=== PATIENT | male | born 1970 | race Caucasian/White ===

== ENCOUNTER 2022-09-27 14:01 | Emergency (ER) | payer OTHER, SELFPAY ==
[2022-09-27 14:05] VITALS: BP 141/80; PULSE 68; RESP 18; TEMP 36.3; O2SAT 97
--- NOTE | 2022-09-27 14:30 | ED.URI ---
HPI - URI/Sore Throat General Chief Complaint: Upper Respiratory Infection Stated Complaint: Congestion Time Seen by Provider: 09/27/22 14:20 Source: patient Mode of arrival: ambulatory Limitations: no limitations History of Present Illness HPI Narrative: patient presents today with an 11 day history of nasal congestion, postnasal drip, runny nose, productive cough. Denies fever shortness of breath. He has been taking DayQuil and NyQuil with short-term relief. He is a nonsmoker. Related Data Home Medications Medication Instructions Recorded Confirmed aspirin 81 mg chewable tablet 81 mg PO DAILY 09/27/22 09/27/22 atorvastatin 80 mg tablet 80 mg PO DAILY 09/27/22 09/27/22 losartan 50 mg tablet 50 mg PO DAILY 09/27/22 09/27/22 metoprolol succinate 25 mg 25 mg PO DAILY 09/27/22 09/27/22 tablet,extended release 24 hr pantoprazole 40 mg tablet,delayed 40 mg PO DAILY 09/27/22 09/27/22 release Allergies Allergy/AdvReac Type Severity Reaction Status Date / Time No Known Allergies Allergy Verified 09/27/22 14:34 Review of Systems Review of Systems: CONSTITUTIONAL: Denies body aches, fever, chills, or sweats. EYES: Denies visual changes, redness, or discharge. ENT: Denies sore throat, or otalgia.+ Runny nose, congestion, postnasal drip CARDIOVASCULAR: Denies chest pain, palpitations, or edema. RESPIRATORY: Denies dyspnea.+ cough GASTROINTESTINAL: Denies abdominal pain, nausea, vomiting, or diarrhea. GENITOURINARY: Denies dysuria or hematuria. SKIN: Denies rash, itching, or wounds. MUSCULOSKELETAL: Denies back pain, joint pain, or myalgia. NEUROLOGIC: Denies headache, numbness, tingling, or weakness. PSYCH: Denies depression or anxiety. PMFSH Comments At time of signature, I have reviewed and agree with nursing past medical, surgical, social and family history unless otherwise noted. Please see nursing chart for further information. There is no relevant family history pertinent to the presenting complaint Exam Narrative: GENERAL: Mildly ill-appearing, well-nourished, and in no acute distress. HEAD: Normocephalic, atraumatic. EYES: EOMI. No redness or drainage. Conjunctivae normal. ENT: Mucous membranes pink and moist. Nares Congested. No rhinorrhea. TMs normal bilaterally. Throat normal. Uvula midline. NECK: Normal AROM. Supple. No lymphadenopathy. CHEST: No respiratory distress. Clear to auscultation. HEART: Regular rate and rhythm. No murmur appreciated. Normal peripheral pulses. EXTREMITIES: Normal range of motion. No edema. SKIN: Warm, dry, no rash. Capillary refill normal. Normal skin turgor. NEURO: No focal deficits. Alert and oriented x3. Gait steady. PSYCH: Normal affect. No signs of depression or anxiety. Course Course Level of Care: Express Care Visit Vital Signs Vital signs: Vital Signs Temperature 97.4 F L 09/27/22 14:05 Pulse Rate 68 09/27/22 14:05 Respiratory Rate 18 09/27/22 14:05 Blood Pressure 141/80 H 09/27/22 14:05 Pulse Oximetry 97 09/27/22 14:05 Oxygen Delivery Room Air 09/27/22 14:05 Temperature 97.4 F L 09/27/22 14:05 Pulse Rate 68 09/27/22 14:05 Respiratory Rate 18 09/27/22 14:05 Blood Pressure 141/80 H 09/27/22 14:05 Pulse Oximetry 97 09/27/22 14:05 Oxygen Delivery Room Air 09/27/22 14:05 Reviewed. Pt has been instructed to follow up with his PCP regarding his elevated blood pressure today. MDM - URI/Sore Throat Differential Diagnosis Differential diagnosis: Likely upper respiratory infection, sinusitis and viral infection Critical Care Time Critical Care Time Critical Care Time: No Discharge Plan Discharge Clinical Impression: Bacterial sinusitis, Bronchitis Patient Disposition: Home, Self-Care Condition: Stable Instructions: Antibiotic Form, Sinusitis (ED), Acute Bronchitis (ED) Additional Instructions: Please take all medications as prescribed. Continue [id number] medication if needed
== END 2022-09-27 14:47 | disposition home or self-care (01) ==
PROVIDERS: Emergency Provider Nurse Practitioner; PCP Family Medicine
DX: J32.9 Chronic sinusitis, unspecified (principal); B96.89 Other specified bacterial agents as the cause of diseases classified elsewhere; J40 Bronchitis, not specified as acute or chronic; Z79.82 Long term (current) use of aspirin
CPT/HCPCS: 99203; G0463

== ENCOUNTER 2024-12-24 11:12 | Emergency (ER) | payer OTHER, SELFPAY ==
[2024-12-24 11:19] VITALS: BP 154/86; PULSE 76; RESP 17; TEMP 36.6; O2SAT 98
[2024-12-24 11:45] LABS: EDCOVIDSCREEN Negative (Negative); EDINFLUASCREEN Negative (Negative); EDINFLUBSCREEN Negative (Negative)
--- NOTE | 2024-12-24 11:45 | ED.ABDPAIN ---
HPI - Abdominal Pain General Chief Complaint: Abdominal Pain Stated Complaint: stomach pain Time Seen by Provider: 12/24/24 11:14 Source: patient Mode of arrival: ambulatory Limitations: no limitations History of Present Illness HPI narrative: Patient is a 54-year-old male who presents with 4 days of right lower quadrant abdominal pain. Patient reports last 2 hours pain has significantly increased in has had chills. Denies any known fevers, nausea, vomiting, diarrhea. Patient still has appendix. Related Data Home Medications ?Medication ?Instructions ?Recorded ?Confirmed ?Last Taken ?Type aspirin 81 mg chewable tablet 81 mg PO DAILY 09/27/22 09/27/22 Unknown History atorvastatin 80 mg tablet 80 mg PO DAILY 09/27/22 09/27/22 Unknown History losartan 50 mg tablet 50 mg PO DAILY 09/27/22 09/27/22 Unknown History metoprolol succinate 25 mg 25 mg PO DAILY 09/27/22 09/27/22 Unknown History tablet,extended release 24 hr pantoprazole 40 mg tablet,delayed 40 mg PO DAILY 09/27/22 09/27/22 Unknown History release Allergies Allergy/AdvReac Type Severity Reaction Status Date / Time No Known Allergies Allergy Verified 12/24/24 11:14 Review of Systems Review of Systems: All systems reviewed & are unremarkable except as noted in HPI and below Constitutional: Constitutional: Denies body ache(s), Denies chills, Denies fatigue, Denies fever(s), Denies headache(s), Denies malaise and Denies weakness Eyes: Eyes: Denies blurry vision, Denies irritation and Denies loss of vision ENT: Denies otalgia, Denies headache(s), Denies nasal discharge, Denies sinus pain and Denies sore throat Cardiovascular: Cardiovascular: Denies chest pain, Denies irregular heart rhythm and Denies dyspnea Respiratory: Respiratory: Denies dyspnea Gastrointestinal: Gastrointestinal: Reports abdominal pain, Denies melena, Denies hematochezia, Denies diarrhea, Denies nausea and Denies vomiting Musculoskeletal: Musculoskeletal: Denies back pain, Denies myalgias and Denies arthralgias Integumentary/Breasts: Skin/Breast: Denies pruritus and Denies rash Neurologic: Denies headache(s), Denies loss of vision and Denies weakness Psychiatric: Psychiatric: Reports no additional psychiatric complaints Endocrine: Endocrine: Denies fatigue PMFSH Comments At time of signature, agree with nursing past medical, surgical, social and family history. There is no relevant family history pertinent to the presenting complaint. Exam Const: General: cooperative, healthy appearing, comfortable, no acute distress and well nourished Nutritional Appearance: well nourished Orientation/consciousness: patient oriented x3 Limitations: no limitations HENMT: Head: normal to inspection, normocephalic and atraumatic Ears: hearing grossly normal bilaterally and external ears normal Face/Nose/Sinus: Normal external nose present, normal facial exam and face symmetric Face and sinus: normal facial exam and face symmetric Mouth: Yes lip normal Eyes: General: appearance normal, both eyes and all related structures Alignment and Position: alignment normal and position normal Periorbital: periorbital findings normal Eyelids: eyelids normal Pupils: Equal, round and reactive pupils present EOM: EOMs intact bilaterally Neck: Neck: normal visual inspection, full ROM and supple Chest: Chest palpation & inspection: normal inspection of the chest Resp: Effort & Inspection: normal respiratory effort and able to speak in complete sentences Auscultation: clear to auscultation bilaterally Cardio: Rate: regular rate Rhythm: regular rhythm Heart sounds: S1 normal heart sound present and S2 normal heart sound present GI: Inspection: normal to inspection GI Palp: Yes abdominal tenderness, Yes Soft to palpation, Yes Tenderness to palpation present (GI) (RLQ), No Guarding due to palpation present (GI), Yes Rebound tenderness present and Yes Other GI palpation findings present (positive obturator and rovsing's signs) Auscultation: normal bowel sounds Rectal Exam: deferred Skin: General skin exam: normal color and no rashes or lesions noted Neuro: General: patient oriented x3 and moves all extremities Cranial nerves: Yes Equal, round and reactive pupils present Speech: normal speech Gait exam (Neuro): Normal gait present Extrem: General: normal to inspection, full ROM and no edema Psych: Appearance: grossly normal and well kempt Mental Status: mental status grossly normal Speech and movement: Normal speech and movement present Affect: normal affect Attitude: cooperative Thought process: Normal thought process present Course Course Emergency Course: Patient being transferred to [facility] for further workup and evaluation to rule out appendicitis Portions of this record may have been created with voice recognition software Level of Care: Express Care Visit Vital Signs Vital signs: Vital Signs Temperature 36.6 C 12/24/24 11:19 Pulse Rate 76 12/24/24 11:19 Respiratory Rate 17 12/24/24 11:19 Blood Pressure 154/86 H 12/24/24 11:19 Pulse Oximetry 98 12/24/24 11:19 Oxygen Delivery Room Air 12/24/24 11:19 Temperature 36.6 C 12/24/24 11:19 Pulse Rate 76 12/24/24 11:19 Respiratory Rate 17 12/24/24 11:19 Blood Pressure 154/86 H 12/24/24 11:19 Pulse Oximetry 98 12/24/24 11:19 Oxygen Delivery Room Air 12/24/24 11:19 Reviewed Transfer Transfered to: [facility] Transportation: Other (Private auto) Transfer rationale: Patient being transferred to [facility] for further workup and evaluation to rule out appendicitis since he is presenting with right lower quadrant pain Accepting physician: Héctor RUBIO MDM - Abdominal Pain MDM Narrative Medical decision making narrative: Patient being transferred to [facility] for further workup and evaluation to rule out appendicitis. Patient has positive obturator and roving sign along with rebound tenderness. Differential Diagnosis Differential diagnosis: Likely abdominal pain, acute appendicitis, constipation, gastroenteritis and small bowel obstruction Medical Records Attestation: I reviewed the patient's medical records. Discharge Plan Discharge Clinical Impression: Abdominal pain, acute, right lower quadrant Patient Disposition: Acute Care Hospital Condition: Stable Patient Language: Welsh Prescriptions: No Action losartan 50 mg tablet 50 mg PO DAILY atorvastatin 80 mg tablet 80 mg PO DAILY pantoprazole 40 mg tablet,delayed release (DR/EC) 40 mg PO DAILY aspirin [Adult Aspirin] 81 mg Tablet,Chewable 81 mg PO DAILY metoprolol succinate 25 mg tablet extended release 24 hr 25 mg PO DAILY prednisone 50 mg tablet 50 mg PO DAILY 5 Days Qty: 5 0RF amoxicillin-pot clavulanate 875-125 mg tablet 1 tablet PO Q12H 10 Days Qty: 20 0RF Follow-up/Referrals: Cindy,Mariah Cowan, NUT FORMER [Primary Care Provider] - Time of Disposition: 11:52
--- OUTSIDE RECORDS SUMMARY | 2024-12-24 13:18 | XMS_ITS | Encounter Summary ---
Author Organization [facility] Address [address] [place] [address] Care Team Providers Care Topper Press Operator Name Role Phone Nieves Helton MD Primary Care Provider [phone] Angelo Patterson MD Unavailable [phone] Mariah White NP Primary Care Provider [phone] Encounter Details Date Type Department Care Team (Late st Contact Info) Description 11/24/2017 Hospital Follow-up Call [facility] Telemetry [address] [place], [place] [id number] Margo Urrutia RN Social History Tobacco Use Types Packs/Day Years Used Date Smoking Tobacco: Never Smokeless Tobacco: Never Alcohol Use Standard Drinks/Week Comments Yes 0 (1 standard drink = 0.6 oz pur e alcohol) Occasional Sex and Gender Information Value Date Recorded Sex Assigned at Male 12/11/2024 10:38 AM LEGEND MAKER Legal Sex Male 6:21 PM CDT Gender Identity Male 12/11/2024 10:38 AM LEGEND MAKER Sexual Orientation Straight 04/14/2022 11 :33 AM CDT documented as of this encounter Plan of Treatment Upcoming Encounters Date Type Department Care Team (Late st Contact Info) Description 01/22/2025 9:40 AM CDT Office Visit [facility] Multispecialty Care - [address] [place] [address] Mariah White, VENTILATOR SPECIALIST [address] [facility] [place] [address] 02/14/2025 8:30 AM CDT Office Visit [facility], [address] [place], [place] [id number] Angelo Patterson MD [address] [facility]. [address] [place], [place] [address] documented as of this encounter Visit Diagnoses Not on filedocumented in this encounter Care Teams Topper Press Operator Relationship Specialty Start Date End Date Nieves Helton MD PCP - General 07/28/14 12/09/24 Mariah White NP [address] [facility] [address] [place] [address] PCP - General 12/10/24 Angelo Patterson MD [facility]. [facility] [address] [place], [place] [id number] [place] Acid Bath Mixer CARDIOVASCULAR DISEASE 12/01/17 documented as of this encounter
--- OUTSIDE RECORDS SUMMARY | 2024-12-24 13:18 | XMS_ITS | Encounter Summary ---
Author Organization [facility] Address [address] [place] [address] Care Team Providers Care Holistic Pulser Name Role Phone Nieves Helton MD Primary Care Provider [phone] Angelo Patterson MD Unavailable Mariah White NP Primary Care Provider [phone] Encounter Details Date Type Department Care Team (Late st Contact Info) Description 12/11/2023 MyCBNRG Renewablest Message Enc [facility] Medical [facility] Multispecialty Care - [facility] [address], [address] [place] [id number] Bernadette Kinney NP [address] [facility] [address] [place] [address] Test Results Social History Tobacco Use Types Packs/Day Years Used Date Smoking Tobacco: Never Passive Smoke Exposure: Never Smokeless Tobacco: Never Comments:Rare occasion I lasha l smoke a cigar.... once a year Alcohol Use Standard Drinks/Week Comments Yes 3.3 (1 standard drink = 0.6 oz p ure alcohol) Occasional PHQ-2 Answer Date Recorded Patient Health Questionnaire-2 Score 0 11/21/2023 Sex and Gender Information Value Date Recorded Sex Assigned at Male 12/11/2024 10:38 AM RESEARCH EXECUTIVE Legal Sex Male 6:21 PM CDT Gender Identity Male 12/11/2024 10:38 AM RESEARCH EXECUTIVE Sexual Orientation Straight 04/14/2022 11 :33 AM CDT Occupation Industry Job Start Date Job End Date Not on file Not on file Not on file Not on file documented as of this encounter Plan of Treatment Upcoming Encounters Date Type Department Care Team (Late st Contact Info) Description 01/22/2025 9:40 AM CDT Office Visit [facility] Multispecialty Care - [place] [address] [place] [address] Mariah White, MILDRED [address] [place] [address] 02/14/2025 8:30 AM CDT Office Visit [facility] THREE [facility], [address] [place], [place] [id number] Angelo Patterson MD [facility]. [address] [place], [place] [id number] documented as of this encounter Visit Diagnoses Not on filedocumented in this encounter Care Teams Holistic Pulser Relationship Specialty Start Date End Date Nieves Helton MD PCP - General 07/28/14 12/09/24 Mariah White NP [address] [facility] [address] [place] [address] PCP - General 12/10/24 Angelo Patterson MD [facility]. [address] [place], [place] [address] [place] Financial Accountant CARDIOVASCULAR DISEASE 12/01/17 documented as of this encounter
--- OUTSIDE RECORDS SUMMARY | 2024-12-24 13:18 | XMS_ITS | Encounter Summary ---
Author Organization [facility] Address [address] [place] [address] Care Team Providers Care Restaurant Operations Manager Name Role Phone Nieves Helton MD Primary Care Provider [phone] Angelo Patterson MD Unavailable [phone] Mariah White NP Primary Care Provider [phone] Encounter Details Date Type Department Care Team (Late st Contact Info) Description 09/13/2022 MyChart Message Enc [facility] Family Medicine - [place] [address], [address] [place] [address] [place] [address] [place] [address] Yannickgovrandy Social History Tobacco Use Types Packs/Day Years Used Date Smoking Tobacco: Never Smokeless Tobacco: Never Comments:Rare occasion I lasha l smoke a cigar.... once a year Alcohol Use Standard Drinks/Week Comments Yes 3.3 (1 standard drink = 0.6 oz p ure alcohol) Occasional PHQ-2 Answer Date Recorded PHQ-2 Score - If the patient scores above 3, please move on to questions 3-9 0 04/15/2022 Sex and Gender Information Value Date Recorded Sex Assigned at Male 12/11/2024 10:38 AM FREELANCE PHOTOGRAPHER Legal Sex Male 6:21 PM CDT Gender Identity Male 12/11/2024 10:38 AM FREELANCE PHOTOGRAPHER Sexual Orientation Straight 04/14/2022 11 :33 AM CDT Occupation Industry Job Start Date Job End Date Not on file Not on file Not on file Not on file documented as of this encounter Plan of Treatment Upcoming Encounters Date Type Department Care Team (Late st Contact Info) Description 01/22/2025 9:40 AM CDT Office Visit [facility] Multispecialty Care - [place] [address] [place] [address] Mariah White, GARBAGE TRUCK HELPER [address] [place] [address] 02/14/2025 8:30 AM CDT [facility] [address] [place], [place] [id number] Angelo Patterson MD [facility]. [address] [place] [address] documented as of this encounter Visit Diagnoses Not on filedocumented in this encounter Care Teams Restaurant Operations Manager Relationship Specialty Start Date End Date Nieves Helton MD PCP - General 07/28/14 12/09/24 Mariah White GARBAGE TRUCK HELPER [address] [facility] [address] [place] [address] PCP - General 12/10/24 Angelo Patterson MD [facility]. [address] [place], [place] [address] [place] Batch Unloader CARDIOVASCULAR DISEASE 12/01/17 documented as of this encounter
--- OUTSIDE RECORDS SUMMARY | 2024-12-24 13:18 | XMS_ITS | Encounter Summary ---
Author Organization [facility] Address [address] [place] [address] Care Team Providers Care Slip Laster Name Role Phone Nieves Helton MD Primary Care Provider [phone] Angelo Patterson MD Unavailable [phone] Mariah White NP Primary Care Provider [phone] Encounter Details Date Type Department Care Team (Late st Contact Info) Description 11/09/2023 Micrima Message Enc [facility] Family Medicine [facility] [address] [facility], [address] [place] [address] [employer], [facility] Provider Appointment Social History Tobacco Use Types Packs/Day Years Used Date Smoking Tobacco: Never Smokeless Tobacco: Never Comments:Rare occasion I lasha l smoke a cigar.... once a year Alcohol Use Standard Drinks/Week Comments Yes 3.3 (1 standard drink = 0.6 oz p ure alcohol) Occasional PHQ-2 Answer Date Recorded Patient Health Questionnaire-2 Score 0 10/25/2023 Sex and Gender Information Value Date Recorded Sex Assigned at Male 12/11/2024 10:38 AM BOTTLE GAUGER Legal Sex Male 6:21 PM CDT Gender Identity Male 12/11/2024 10:38 AM BOTTLE GAUGER Sexual Orientation Straight 04/14/2022 11 :33 AM CDT Occupation Industry Job Start Date Job End Date Not on file Not on file Not on file Not on file documented as of this encounter Plan of Treatment Upcoming Encounters Date Type Department Care Team (Late st Contact Info) Description 01/22/2025 9:40 AM CDT Office Visit [facility] Medical [facility] Multispecialty Care - [place] [address] [place] [address] Mariah White, ELECTRONIC PREPRESS SYSTEM OPERATOR [address] [place] [address] 02/14/2025 8:30 AM CDT Office Visit [facility] [facility], [address] [place], [place] [id number] Angelo Patterson MD [facility]. [address] [place], [place] [address] documented as of this encounter Visit Diagnoses Not on filedocumented in this encounter Care Teams Slip Laster Relationship Specialty Start Date End Date Nieves Helton MD PCP - General 07/28/14 12/09/24 Mariah White, ELECTRONIC PREPRESS SYSTEM OPERATOR [address] [facility] [address] [place] [address] PCP - General 12/10/24 Angelo Patterson MD [facility]. [address] [place], [place] [address] [place] Transportation Specialist CARDIOVASCULAR DISEASE 12/01/17 documented as of this encounter
--- OUTSIDE RECORDS SUMMARY | 2024-12-24 13:18 | XMS_ITS | Encounter Summary ---
Author Organization [facility] Address [address] [place] [address] Care Team Providers Care Cio Name Role Phone Nieves Helton MD Primary Care Provider [phone] Angelo Patterson MD Unavailable [phone] Mariah White NP Primary Care Provider [phone] Encounter Details Date Type Department Care Team (Late st Contact Info) Description 12/28/2022 MyChart Message Enc [facility] Family Medicine - [place] [address] [place] [address] [place] [address] [place] [address] Semaglutide Social History Tobacco Use Types Packs/Day Years [...] Sex Assigned at Male 12/11/2024 10:38 AM FIRE EXTINGUISHER REPAIRER INSPECTOR Legal Sex Male 6:21 PM CDT Gender Identity Male 12/11/2024 10:38 AM FIRE EXTINGUISHER REPAIRER INSPECTOR Sexual Orientation Straight 04/14/2022 11 :33 AM CDT Occupation Industry Job Start Date Job End Date Not on file Not on file Not on file Not on file documented as of this encounter Plan of Treatment Upcoming Encounters Date Type Department Care Team (Late st Contact Info) Description 01/22/2025 9:40 AM CDT Office Visit [facility] Multispecialty Care - [place] [address] [place] [address] Mariah White, MILDRED [address] [place] [address] 02/14/2025 8:30 AM CDT [facility] [address] [place], [place] [id number] Angelo Patterson MD [facility]. [address] [place] [address] documented as of this encounter Visit Diagnoses Not on filedocumented in this encounter Care Teams Cio Relationship Specialty Start Date End Date Nieves Helton MD PCP - General 07/28/14 12/09/24 Mariah White SITE DAMAGE PREVENTION TECHNICIAN [address] [facility] [address] [place] [address] PCP - General 12/10/24 Angelo Patterson MD [facility]. [address] [place], [place] [address] [place] Stacker Operator CARDIOVASCULAR DISEASE 12/01/17 documented as of this encounter
--- OUTSIDE RECORDS SUMMARY | 2024-12-24 13:18 | XMS_ITS | Encounter Summary ---
Author Organization [facility] Address [address] [place] [address] Care Team Providers Care Journeyman Welder Name Role Phone Nieves Helton MD Primary Care Provider [phone] Angelo Patterson MD Unavailable [phone] Mariah White NP Primary Care Provider [phone] Encounter Details Date Type Department Care Team (Late st Contact Info) Description 05/30/2022 MyChart Message Enc [facility] Family Medicine - [place] [address], [address] [place] [address] [place] [address] [place] [address] Weight Loss Meds Social History Tobacco Use Types Packs/Day Years [...] Sex Assigned at Male 12/11/2024 10:38 AM NUTRITION THERAPIST Legal Sex Male 6:21 PM CDT Gender Identity Male 12/11/2024 10:38 AM NUTRITION THERAPIST Sexual Orientation Straight 04/14/2022 11 :33 AM CDT Occupation Industry Job Start Date Job End Date Not on file Not on file Not on file Not on file COVID-19 Exposure Response Date Recorded In the last 10 days, have yo u been in contact with someone who was confirmed or suspected to have Coronavirus/COVID-19? No / Unsure 05/20/2022 8:11 AM CDT documented as of this encounter Plan of Treatment Upcoming Encounters Date Type Department Care Team (Late st Contact Info) Description 01/22/2025 9:40 AM CDT Office Visit [facility] Multispecialty Care - [place] [address] [place] [address] Mariah White, INTEGRATED CAMPAIGN MANAGER [address] [place] [address] 02/14/2025 8:30 AM CDT Office Visit [facility] [facility], [address] [place], [place] [id number] Angelo Patterson MD [facility]. [facility] [address] [place], [place] [address] documented as of this encounter Visit Diagnoses Not on filedocumented in this encounter Care Teams Journeyman Welder Relationship Specialty Start Date End Date Nieves Helton MD PCP - General 07/28/14 12/09/24 Mariah White NP [address] [place], [place] [id number] PCP - General 12/10/24 Angelo Patterson MD [facility]. [address] [place], [place] [id number] Kevin Metal Temperer CARDIOVASCULAR DISEASE 12/01/17 documented as of this encounter
--- OUTSIDE RECORDS SUMMARY | 2024-12-24 13:19 | XMS_ITS | Clinical Summary ---
Author Organization [facility] Address [address] [place] [address] Care Team Providers Care Admission Discharge Rn Name Role Phone Angelo Patterson MD Unavailable [phone] Mariah White NP Primary Care Provider [phone] Allergies No known active allergies Medications aspirin 81 MG tablet Take 1 tablet (81 mg total) by mouth daily. 12/05/19 19 Active nitroglycerin (NITROSTAT) 0.[address] 1 tablet (0.4 mg total) under the tongue every 5 (five) minutes as needed for Chest Pain (If taking 3rd dose, contact 911.). 25 tablet 1 11/04/19 23 Active tadalafil (CIALIS) 5 MG tablet 11/13/19 24 Active Testosterone Micronized Powder 05/05/20 24 Active atorvastatin (LIPITOR) 80 MG tablet Take 1 tablet (80 mg total) by mouth every evening. 90 tablet 2 08/29/20 24 Active losartan (COZAAR) 50 MG tablet TAKE 1 TABLET BY MOUTH TWICE A DAY 180 tablet 11/22/19 25 Active pantoprazole EC (PROTONIX) 20 MG tabletIndicati ons:Gastroesop hageal reflux disease, unspecified whether esophagitis present Take 1 tablet (20 mg total) by mouth daily. 30 tablet 2 12/11/19 25 Active semaglutide-we ight management (WEGOVY) 0.25 mg/dose injection (PEN)Indicatio ns:Weight Loss Inject 0.25 mg into the skin once a week. Indications: Weight Loss X 4 weeks. Call office for next prescription to increase to 0.5mg weekly. 2 mL 1 12/11/19 25 Active Testosterone Powder 05/11/20 22 025 Discontinued pantoprazole EC (PROTONIX) 40 MG tablet Take 1 tablet (40 mg total) by mouth daily. 90 tablet 2 08/29/20 24 025 Discontinued Active Problems Problem Noted Date Diagnosed Date PTSD (post-traumatic stress disorder) 12/12/2024 Essential hypertension 12/12/2024 Class 2 severe obesity with serious comorbidity and body mass index (BMI) of 35.0 to 35.9 in adult, unspecified obesity type ([facility]) 12/11/2024 Tubular adenoma of colon 12/11/2024 Essential (primary) hypertension 05/24/2024 Gastroesophageal reflux dise ase, unspecified whether esophagitis present 10/25/2023 Prediabetes 05/20/2022 Palpitations 07/13/2021 Pure hypercholesterolemia 04/07/2020 Ischemic cardiomyopathy 04/07/2020 Coronary artery disease invo lving winneb[place] coronary artery of winneb[place] heart without angina pectoris 01/10/2018 STEMI involving left anterio r descending coronary artery ([facility]) 11/20/2017 Resolved Problems Problem Noted Date Diagnosed Date Resolved Date Screening for colon cancer 10/25/2023 0 10/30/2023 Encounters Date Type Department Care Team Description 12/16/2024 [facility]phone [facility] [place] [id number] [place] [address] Mariah White, SLEEVE TAILOR Prior Authorization 12/16/2024 [email or web address] Message Enc [facility] [address] [place] [address] Mariah White, MILDRED Anton 12/11/2024 10:20 AM GRIT REMOVAL OPERATOR [facility] [address] [place] [address] Mariah White, SLEEVE TAILOR New Patient 12/11/2024 Travel from Last 3 Months Family History Medical History Relation Comments Hypertension Father Arthritis Maternal Grandfather Alcohol Abuse Mother No family history of premature vascular disease. Other Cancer Paternal Grandfather Diabetes Paternal Grandfather Retardation/Learning Difficulties Paternal Grand mother Relation Status Comments Brother Alive Father Alive Maternal Grandfather Mother Alive Other Paternal Grandfather Paternal Grandmother Social History Tobacco Use Types Packs/Day Years Used Date Smoking Tobacco: Never Passive Smoke Exposure: Never Smokeless Tobacco: Never Tobacco Cessation:Counseling Given: No Comments:Rare occasion I will smoke a cigar.... once a year Alcohol Use Standard Drinks/Week Comments Yes 3.3 (1 standard drink = 0.6 oz p ure alcohol) Occasional PHQ-2 Answer Date Recorded Patient Health Questionnaire-2 Score 4 12/11/2024 Sex and Gender Information Value Date Recorded Sex Assigned at Male 12/11/2024 10:38 AM GRIT REMOVAL OPERATOR Legal Sex Male 6:21 PM CDT Gender Identity Male 12/11/2024 10:38 AM GRIT REMOVAL OPERATOR Sexual Orientation Straight 04/14/2022 11 :33 AM CDT Occupation Industry Job Start Date Job End Date Not on file Not on file Not on file Not on file Last Filed Vital Signs Vital Sign Reading Time Taken Comments Blood Pressure 142/90 12/11/2024 11:36 AM GRIT REMOVAL OPERATOR Pulse 64 12/11/2024 10:38 AM GRIT REMOVAL OPERATOR Temperature 36.8 C (98.3 F) 12/11/2024 10:38 AM GRIT REMOVAL OPERATOR Respiratory Rate 18 12/11/2024 10:38 AM GRIT REMOVAL OPERATOR Oxygen Saturation 98% 12/11/2024 10:38 AM GRIT REMOVAL OPERATOR Inhaled Oxygen Concentration - - Weight 114 kg (251 lb 6.4 oz) 12/11/2024 10:38 A M GRIT REMOVAL OPERATOR Height 180.3 cm (5' 11 ) 12/11/2024 10:38 AM GRIT REMOVAL OPERATOR Body Mass Index 35.06 12/11/2024 10:38 AM GRIT REMOVAL OPERATOR Plan of Treatment Upcoming Encounters Date Type Department Care Team (Late st Contact Info) Description 01/22/2025 9:40 AM CDT Office Visit [facility] Medical Group Multispecialty Care - [place] [address] [place] [address] Mariah White, SLEEVE TAILOR [address] [place] [address] 02/14/2025 8:30 AM CDT Office Visit [facility] [facility] [address] [place] [address] Angelo Patterson MD Three [facility]. [facility] [address] [place] [address] Health Maintenance Due Date Last Done Comments Pneumococcal Vaccine: Pediatrics (0 to 5 Years) and At-Risk Patients (6 to 64 Years) (1 of 2 - PCV) 1978 Hepatitis C 1990 DTaP, Tdap and Td Vaccines (1 - Tdap) 1991 Hepatitis B Vaccines (1 of 3 - 19+ 3-dose series) 1991 Zoster Vaccines (1 of 2) 2022 ASCVD LDL 04/19/2023 04/19/2022, 03, 02/26/2018, Additional history exists COVID-19 Vaccine (3 - 2023- season) 2024 11/12/2021, 10/11/2021 Influenza Adult (#1) 2024 Annual Physical 11/21/2024 11/21/2023, 04/30, 02/17/2021 Colorectal Cancer Screening Colonoscopy (10 Years) 12/08/2033 12/08/2023 PHQ-2 (Physician Huddy) Completed 12/11/2024 Meningococcal B Vaccine Aged Out No l onger eligible based on patient's age to complete this topic Meningococcal Vaccine Aged Out No linda alberto eligible based on patient's age to complete this topic RSV Immunizations Under 20 Months Aged Out No longer eligible based on patient's age to complete this topic Medical Devices Implanted Type Area Credit Union Manager Device Identifier Shelf Expiration Date Model / Serial / Lot Stent Stent Heart Procedures Procedure Name Priority Date/Time Associated Diagnosis Comments LIPID PANEL Routine 04/19/2022 8:51 AM CDT Pure hypercholesterolemia Coronary artery disease involving winnebago coronary artery of winnebago heart without angina pectoris from Last 3 Months or Most Recently Relevant to Health Maintenance Results * (ABNORMAL) LIPID PANEL (04/19/2022 8:51 AM CDT) CHOLESTEROL 112 <200 MG/DL 04/19/2022 10:06 AM CDT [facility] TRIGLYCERIDES 108 <150 MG/DL 04/19/2022 10:06 AM CDT [facility] HDL 40(L) >40.0 MG/DL 04/19/2022 10:06 AM CDT [facility] LDL (CALCULATED) 50 <100 MG/DL 04/19/20 10:06 AM CDT [facility] NON HDL CHOLESTEROL 72 <130 MG/DL 04/19 10:06 AM CDT [facility] CHOL/HDL RATIO 2.8 0.0 - 4.5 04/19/2022 10:06 AM T [facility] VLDL CALCULATION 22 5 - 55 MG/DL 04/19/2022 10:06 AM CDT [facility] LIPID INTERPRETATION 04/19/2022 10:06 AM CDT [facility] Comment: NIH CONCENSUS REPORT RECOMMENDATIONS: ADULT CHILD LOW RISK: CHOLESTEROL <200 <170 TRIGLYCERIDE <150 --- HDL >=60 --- LDL <100 <110 BORDERLINE: CHOLESTEROL 200-239 170-199 TRIGLYCERIDE 150-199 --- HDL 40-59 --- LDL 100-159 110-129 HIGH RISK: CHOLESTEROL >=240 >=200 TRIGLYCERIDE >=200 --- HDL <40 --- LDL >=160 >=130 04/19/2022 8:51 AM CDT us Nieves Helton MD LABORATORY Final Result [facility] [address] [place] [address], [place] [phone] from Last 3 Months or Most Recently Relevant to Health Maintenance Insurance [facility] Care Teams Admission Discharge Rn Relationship Specialty Start Date End Date Mariah White NP [address] [place] [address] PCP - General 12/10/24 Angelo Patterson MD [facility] [address] [place] [address] Tolstoy Card Painter CARDIOVASCULAR DISEASE 12/01/17
--- OUTSIDE RECORDS SUMMARY | 2024-12-24 13:19 | XMS_ITS | Encounter Summary ---
Author Organization [facility] Address [address] [place] [address] Care Team Providers Care Header Dock Name Role Phone Nieves Helton MD Primary Care Provider [phone] Angelo Patterson MD Unavailable Mariah White NP Primary Care Provider Encounter Details Date Type Department Care Team (Late st Contact Info) Description 04/20/2022 MyChart Message Enc [facility] Medical Group Family Medicine - [place] [address], [address] [place] [address] [place] [address] [place] [address] Tests Results Social History Tobacco Use Types Packs/Day Years Used Date Smoking Tobacco: Never Smokeless Tobacco: Never Comments:NO Alcohol Use Standard Drinks/Week Comments Yes 0 (1 standard drink = 0.6 oz pur e alcohol) Occasional PHQ-2 Answer Date Recorded PHQ-2 Score - If the patient scores above 3, please move on to questions 3-9 0 04/15/2022 Sex and Gender Information Value Date Recorded Sex Assigned at Male 12/11/2024 10:38 AM ELECTRONIC ORGAN TECHNICIAN Legal Sex Male 6:21 PM CDT Gender Identity Male 12/11/2024 10:38 AM ELECTRONIC ORGAN TECHNICIAN Sexual Orientation Straight 04/14/2022 11 :33 AM CDT Occupation Industry Job Start Date Job End Date Not on file Not on file Not on file Not on file COVID-19 Exposure Response Date Recorded In the last 10 days, have yo u been in contact with someone who was confirmed or suspected to have Coronavirus/COVID-19? No / Unsure 04/19/2022 8:28 AM CDT documented as of this encounter Plan of Treatment Upcoming Encounters Date Type Department Care Team (Late st Contact Info) Description 01/22/2025 9:40 AM CDT Office Visit [facility] Medical Group Multispecialty Care - [place] [address] [place] [address] Mariah White, MILDRED [address] [place] [address] 02/14/2025 8:30 AM CDT Office Visit [facility] THREE [facility], [address] [place] [address] Angelo Patterson MD [facility]. [address] [place], [place] [id number] documented as of this encounter Visit Diagnoses Not on filedocumented in this encounter Care Teams Header Dock Relationship Specialty Start Date End Date Nieves Helton MD PCP - General 07/28/14 12/09/24 Mariah White BEAM MACHINE OPERATOR [address] [place] [address] PCP - General 12/10/24 Angelo Patterson MD [facility]. [address] [place], [place] [address] Kevin Supervisor Throwing Department CARDIOVASCULAR DISEASE 12/01/17 documented as of this encounter
--- OUTSIDE RECORDS SUMMARY | 2024-12-24 13:19 | XMS_ITS | Encounter Summary ---
Author Organization [facility] Address [address] [place] [address] Care Team Providers Care Spark Tester Name Role Phone Angelo Patterson MD Unavailable Mariah White NP Primary Care Provider [phone] Encounter Details Date Type Department Care Team (Late st Contact Info) Description 12/16/2024 MyChart Message Enc [facility] Medical Group Multispecialty Care - [place] [address] [place] [address] Mariah White NP [address] [place] [address] Wegovrandy Social History Tobacco Use Types Packs/Day Years [...] Sex Assigned at Male 12/11/2024 10:38 AM FRAME COVERER Legal Sex Male 6:21 PM CDT Gender Identity Male 12/11/2024 10:38 AM FRAME COVERER Sexual Orientation Straight 04/14/2022 11 :33 AM CDT Occupation Industry Job Start Date Job End Date Not on file Not on file Not on file Not on file documented as of this encounter Plan of Treatment Upcoming Encounters Date Type Department Care Team (Late st Contact Info) Description 01/22/2025 9:40 AM CDT Office Visit [facility] Medical Group Multispecialty Care - [place] [address] [place] [address] Mariah White, MILDRED [address] [place] [address] 02/14/2025 8:30 AM CDT Office Visit [facility] [facility] [address] [place] [address] Angelo Patterson MD [facility]. [address] [place], [place] [address] documented as of this encounter Visit Diagnoses Not on filedocumented in this encounter Additional Health Concerns Assessment Noted Time PHQ-9 Depression Total Score: 14 025 1:17 PM FRAME COVERER documented as of this encounter Care Teams Spark Tester Relationship Specialty Start Date End Date Mariah White NP [address] [place] [address] PCP - General 12/10/24 [facility] Patterson [facility] [address] [place], [place] [id number] [place] Apparel Fashion Designer CARDIOVASCULAR DISEASE 12/01/17 documented as of this encounter
--- OUTSIDE RECORDS SUMMARY | 2024-12-24 13:19 | XMS_ITS | Encounter Summary ---
Author Organization [facility] Address [address] [place] [address] Care Team Providers Care Teacher Of The Deaf Name Role Phone Nieves Helton MD Primary Care Provider [phone] Angelo Patterson MD Unavailable [phone] Mariah White NP Primary Care Provider [phone] Encounter Details Date Type Department Care Team (Late st Contact Info) Description 10/05/2022 MyChart Message Enc [facility] Medical Group Family Medicine - [place] [address] [place] [address] [place] [address] [place] [address] Yannickgovrandy Social History Tobacco Use Types Packs/Day [...] Sex Assigned at Male 12/11/2024 10:38 AM MEDICAL ADMINISTRATIVE Legal Sex Male 6:21 PM CDT Gender Identity Male 12/11/2024 10:38 AM MEDICAL ADMINISTRATIVE Sexual Orientation Straight 04/14/2022 11 :33 AM CDT Occupation Industry Job Start Date Job End Date Not on file Not on file Not on file Not on file documented as of this encounter Plan of Treatment Upcoming Encounters Date Type Department Care Team (Late st Contact Info) Description 01/22/2025 9:40 AM CDT Office Visit [facility] Medical Group Multispecialty Care - [place] [address] [place] [address] Mariah White, ORACLE FUSION MIDDLEWARE ARCHITECT [address] [place] [address] 02/14/2025 8:30 AM CDT [facility] [address] [place], [place] [id number] Angelo Patterson MD [facility]. [place] [address] [place] [address] documented as of this encounter Visit Diagnoses Not on filedocumented in this encounter Care Teams Teacher Of The Deaf Relationship Specialty Start Date End Date Nieves Helton MD PCP - General 07/28/14 12/09/24 Mariah White ORACLE FUSION MIDDLEWARE ARCHITECT [address] [place] [address] PCP - General 12/10/24 Angelo Patterson MD [facility]. [address] [place], [place] [address] [place] Commercial Teller CARDIOVASCULAR DISEASE 12/01/17 documented as of this encounter
--- OUTSIDE RECORDS SUMMARY | 2024-12-24 13:19 | XMS_ITS | Encounter Summary ---
Author Organization [facility] Address [address] [place] [address] Care Team Providers Care Call Center Professional Name Role Phone Nieves Helton MD Primary Care Provider [phone] Angelo Patterson MD Unavailable [phone] Mariah White NP Primary Care Provider Encounter Details Date Type Department Care Team (Late st Contact Info) Description 05/24/2024 MyChart Message Enc [facility] Medical Group Family Medicine - [place] [address] [place] [address] [place] [address] [place] [address] milind Social History Tobacco Use Types Packs/Day Years [...] Sex Assigned at Male 12/11/2024 10:38 AM REPORT ANALYST Legal Sex Male 6:21 PM CDT Gender Identity Male 12/11/2024 10:38 AM REPORT ANALYST Sexual Orientation Straight 04/14/2022 11 :33 AM CDT Occupation Industry Job Start Date Job End Date Not on file Not on file Not on file Not on file documented as of this encounter Plan of Treatment Upcoming Encounters Date Type Department Care Team (Late st Contact Info) Description 01/22/2025 9:40 AM CDT Office Visit [facility] Medical Group Multispecialty Care - [place] [address] [place] [address] Mariah White, EDUCATIONAL PROGRAM ASSISTANT [address] [place] [address] 02/14/2025 8:30 AM CDT Office Visit [facility] THREE [facility], [address] [place], [place] [id number] Angelo Patterson MD [facility]. [address] [place], [place] [id number] documented as of this encounter Visit Diagnoses Not on filedocumented in this encounter Care Teams Call Center Professional Relationship Specialty Start Date End Date Nieves Helton MD PCP - General 07/28/14 12/09/24 Mariah White NP [address] [place] [address] PCP - General 12/10/24 Angelo Patterson MD [facility]. [address] [place], [place] [id number] [place] Take Away Man CARDIOVASCULAR DISEASE 12/01/17 documented as of this encounter
--- OUTSIDE RECORDS SUMMARY | 2024-12-24 13:19 | XMS_ITS | Encounter Summary ---
Author Organization [facility] Address [address] [place] [address] Care Team Providers Care Orthopaedic Technologist Name Role Phone Nieves Helton MD Primary Care Provider [phone] Angelo Patterson MD Unavailable [phone] Mariah White NP Primary Care Provider [phone] Encounter Details Date Type Department Care Team (Late st Contact Info) Description 10/06/2022 Local Plant Source Message Enc [facility] THREE [facility], [address] [place] [address] Natacha Gilmore PA-C [address] [place] [address] medicine Social History Tobacco Use Types Packs/Day Years [...] Sex Assigned at Male 12/11/2024 10:38 AM LEATHER CASE FINISHER Legal Sex Male 6:21 PM CDT Gender Identity Male 12/11/2024 10:38 AM LEATHER CASE FINISHER Sexual Orientation Straight 04/14/2022 11 :33 AM CDT Occupation Industry Job Start Date Job End Date Not on file Not on file Not on file Not on file documented as of this encounter Plan of Treatment Upcoming Encounters Date Type Department Care Team (Late st Contact Info) Description 01/22/2025 9:40 AM CDT Office Visit [facility] Multispecialty Care - [place] [address] [place] [address] Mariah White, SPRINKLER IRRIGATION EQUIPMENT MECHANIC [address] [place] [address] 02/14/2025 8:30 AM CDT [facility] [address] [place], [place] [id number] Angelo Patterson MD [facility]. [address] [place] [address] documented as of this encounter Visit Diagnoses Not on filedocumented in this encounter Care Teams Orthopaedic Technologist Relationship Specialty Start Date End Date Nieves Helton MD PCP - General 07/28/14 12/09/24 Mariah White SPRINKLER IRRIGATION EQUIPMENT MECHANIC [address] [place] [address] PCP - General 12/10/24 Angelo Patterson MD [facility]. [address] [place], [place] [address] [place] Hand Etcher Helper CARDIOVASCULAR DISEASE 12/01/17 documented as of this encounter
--- OUTSIDE RECORDS SUMMARY | 2024-12-24 13:19 | XMS_ITS | Encounter Summary ---
Author Organization [facility] - [facility] Address [address] [place] [address] Care Team Providers Care Whipped Topping Supervisor Name Role Phone Nieves Helton MD Primary Care Provider [phone] Angelo Patterson MD Unavailable [phone] Mariah White NP Primary Care Provider [phone] Encounter Details Date Type Department Care Team (Latest Contact Info) Description 09/04/2018 Abstract [facility] Rahul Handy MD Social History Tobacco Use Types Packs/Day Years Used Date Smoking Tobacco: Never Smokeless Tobacco: Never Alcohol Use Standard Drinks/Week Comments Yes 0 (1 standard drink = 0.6 oz pur e alcohol) Occasional Sex and Gender Information Value Date Recorded Sex Assigned at Male 12/11/2024 10:38 AM MEN'S LOCKER ROOM ATTENDANT Legal Sex Male 6:21 PM CDT Gender Identity Male 12/11/2024 10:38 AM MEN'S LOCKER ROOM ATTENDANT Sexual Orientation Straight 04/14/2022 11 :33 AM CDT Occupation Industry Job Start Date Job End Date Not on file Not on file Not on file Not on file documented as of this encounter Plan of Treatment Upcoming Encounters Date Type Department Care Team (Late st Contact Info) Description 01/22/2025 9:40 AM CDT Office Visit [facility] [place] [address] [place] [address] Mariah White NP [address] [place] [address] 02/14/2025 8:30 AM CDT Office Visit [facility] [place] THREE [facility] [address] [place] [address] Angelo Patterson MD [facility]. [facility] [address] [place], [place] [id number] documented as of this encounter Visit Diagnoses Not on filedocumented in this encounter Care Teams Whipped Topping Supervisor Relationship Specialty Start Date End Date Nieves Helton MD PCP - General 07/28/14 12/09/24 Mariah White NP [address] [facility] [address] [place] [address] PCP - General 12/10/24 Angelo Patterson MD [facility]. [facility] [address] [place], [place] [id number] [place] Prenatal Nurse CARDIOVASCULAR DISEASE 12/01/17 documented as of this encounter
--- OUTSIDE RECORDS SUMMARY | 2024-12-24 13:19 | XMS_ITS | Encounter Summary ---
Author Organization [facility] - [facility] Address [address] [place] [address] Care Team Providers Care Patrol Captain Name Role Phone Angelo Patterson MD Unavailable Mariah White NP Primary Care Provider [phone] Reason for Visit * Reason Onset Date Comments Prior Authorization 12/16/2024 Encounter Details Date Type Department Care Team (Late st Contact Info) Description 12/16/2024 Telephone [facility] [place] [address] [place] [address] Mariah White NP [address] [place] [address] Prior Authorization Social History Tobacco Use Types Packs/Day Years [...] Sex Assigned at Male 12/11/2024 10:38 AM PIGMENT PRESSER Legal Sex Male 6:21 PM CDT Gender Identity Male 12/11/2024 10:38 AM PIGMENT PRESSER Sexual Orientation Straight 04/14/2022 11 :33 AM CDT Occupation Industry Job Start Date Job End Date Not on file Not on file Not on file Not on file documented as of this encounter Progress Notes * Bijal Mcneil MA - 12/23/2024 10:34 AM CST This has been sent for appeal waiting on decision. ENT PRESSER * Bhargavi Patton - 12/23/2024 10:14 AM CST [facility] is calling with phone # for prior Auth, phone # [phone], this is for the wegovy. ENT PRESSER * Demetra Benites MA - 12/16/2024 4:23 PM CST PA for wegovy Denied. ENT PRESSER documented in this encounter Plan of Treatment Upcoming Encounters Date Type Department Care Team (Late st Contact Info) Description 01/22/2025 9:40 AM CDT Office Visit [facility] [place] [address] [place] [address] Mariah White NP [address] [place] [address] 02/14/2025 8:30 AM CDT Office Visit [facility] THREE [facility], [place] [address] [place], [place] [id number] Angelo Patterson MD Three [facility]. [place] [address] [place], [place] [id number] documented as of this encounter Visit Diagnoses Not on filedocumented in this encounter Additional Health Concerns Assessment Noted Time PHQ-9 Depression Total Score: 14 025 1:17 PM PIGMENT PRESSER documented as of this encounter Care Teams Patrol Captain Relationship Specialty Start Date End Date Mariah White, SHANK PIECE TACKER [address] [facility] [address] [place] [address] PCP - General 12/10/24 Angelo Patterson MD [facility]. [facility] [address] [place] [address] [place] Stud Dairy Cattle Farmer CARDIOVASCULAR DISEASE 12/01/17 documented as of this encounter
--- OUTSIDE RECORDS SUMMARY | 2024-12-24 13:19 | XMS_ITS | Encounter Summary ---
Author Organization [facility] Address [address] [place] [address] Care Team Providers Care Carton Stenciler Name Role Phone Nieves Helton MD Primary Care Provider [phone] Angelo Patterson MD Unavailable [phone] Mariah White NP Primary Care Provider [phone] Encounter Details Date Type Department Care Team (Late st Contact Info) Description 08/27/2018 Abstract [facility] at [address] [address] Adelita Howe MA Social History Tobacco Use Types Packs/Day Years Used Date Smoking Tobacco: Never Smokeless Tobacco: Never Alcohol Use Standard Drinks/Week Comments Yes 0 (1 standard drink = 0.6 oz pur e alcohol) Occasional Sex and Gender Information Value Date Recorded Sex Assigned at Male 12/11/2024 10:38 AM CARPENTER ASSISTANT INSTALLER Legal Sex Male 6:21 PM CDT Gender Identity Male 12/11/2024 10:38 AM CARPENTER ASSISTANT INSTALLER Sexual Orientation Straight 04/14/2022 11 :33 AM CDT Occupation Industry Job Start Date Job End Date Not on file Not on file Not on file Not on file documented as of this encounter Plan of Treatment Upcoming Encounters Date Type Department Care Team (Late st Contact Info) Description 01/22/2025 9:40 AM CDT Office Visit [facility] Medical Group Multispecialty [facility] [address] [place] [address] Mariah White, FOOTBALL SCOUT [address] [place] [address] 02/14/2025 8:30 AM CDT Office Visit [facility] [address] [facility] [address], [place] [address] [place], [place] [phone] Angelo Patterson MD Three [facility]. [place] [address] [place], [place] [id number] documented as of this encounter Procedures Procedure Name Priority Date/Time Associated Diagnosis Comments CORTISOL Routine 11/12/2018 FOLATE (OUTSIDE LAB) Routine 11/12/2018 CBC (OUTSIDE LAB) Routine 11/12/2018 TRIIODOTHYRONINE TOTAL , TT-3 Routine 11/12/2018 FREE T3 Routine 11/12/2018 PROSTATE SPECIFIC ANTIGEN,TOTAL Routine 11/12/2018 COMPREHENSIVE METABOLIC PANEL Routine 11/12/2018 HEMOGLOBIN, GLYCOSYLATED Routine 11/12/2018 THYROXINE, FREE (FT4) Routine 11/12/2018 THYROID STIM HORMONE TSH Routine 11/12/2018 VITAMIN D, 25 OH Routine 11/12/2018 CBC (OUTSIDE LAB) Routine 08/10/2018 VITAMIN B-12 Routine 08/10/2018 TRIIODOTHYRONINE TOTAL , TT-3 Routine 08/10/2018 COMPREHENSIVE METABOLIC PANEL Routine 08/10/2018 HEMOGLOBIN, GLYCOSYLATED Routine 08/10/2018 THYROXINE, FREE (FT4) Routine 08/10/2018 THYROID STIM HORMONE TSH Routine 08/10/2018 VITAMIN D, 25 OH Routine 08/10/2018 documented in this encounter Results * HEMOGLOBIN, GLYCOSYLATED (11/12/2018) HGB A1C 5.7 11/12/2018 [facility] LABORATORY Edited Resul t - Final * PROSTATE SPECIFIC ANTIGEN,TOTAL (11/12/2018) PSA 1.8 11/12/2018 [facility] LABORATORY Edited Resul t - Final * VITAMIN D, 25 OH (11/12/2018) VITAMIN D 25 HYDROXY S/P/B 51 11/12/2018 [facility] LABORATORY Edited Resul t - Final * FREE T3 (11/12/2018) FREE T3 3.3 11/12/2018 [facility] LABORATORY Edited Resul t - Final * THYROID STIM HORMONE, TSH (11/12/2018) TSH 1.89 11/12/2018 [facility] LABORATORY Edited Resul t - Final * THYROXINE, FREE (FT4) (11/12/2018) FREE T4 1.3 11/12/2018 [facility] LABORATORY Edited Resul t - Final * TRIIODOTHYRONINE TOTAL , TT-3 (11/12/2018) Pathologist [facility] T3 TOTAL 105 76 - 181 11/12/2018 [facility] LABORATORY Edited Resul t - Final * FOLATE (OUTSIDE LAB) (11/12/2018) Pathologist [facility] FOLATE 11.3 11/12/2018 [facility] Abstract LAB-OUTSIDE/ABSTRACTED Edite d Result - Final * CORTISOL (11/12/2018) [facility] CORTISOL FREE 0.30 11/12/2018 us [facility] LABORATORY Edited Resul t - Final * CBC (OUTSIDE LAB) (11/12/2018) [facility] WBC 6.7 HGB 16.1 HCT 49.3 PLT 244 11/12/2018 us [facility] Abstract LAB-OUTSIDE/ABSTRACTED Edite d Result - Final * COMPREHENSIVE METABOLIC PANEL (11/12/2018) Pathologist [facility] SODIUM S/P/B 140 POTASSIUM S/P/B 4.5 CO2 21 CHLORIDE S/P/B 103 GLUCOSE 99 mg/dL CALCIUM S/P/B 9.7 BUN 10 CREATININE S/P/B 1.15 0.7 - 1.3 EGFR AFR. AMER. 88 EGFR NON-AFR. AMER. 76 <=90 ALKALINE PHOSPHATASE S/P/B 50 ALT 26 AST 21 BILIRUBIN TOTAL S/P/B 1.0 ALBUMIN S/P/B 4.7 3.5 - 5.0 TOTAL PROTEIN S/P/B 7.6 GLOBULIN 2.9 11/12/2018 [facility] LABORATORY Edited Resul t - Final * VITAMIN D, 25 OH (08/10/2018) VITAMIN D 25 HYDROXY S/P/B 24 08/10/2018 [facility] LABORATORY Final Result * VITAMIN B-12 (08/10/2018) VITAMIN B12 S/P/B 411 08/10/2018 [facility] LABORAT[facility] Final Result * CBC (OUTSIDE LAB) (08/10/2018) WBC 5.9 HGB 15.0 HCT 43.5 PLT 202 08/10/2018 [facility] Abstract LAB-OUTSIDE/ABSTRACTED Final Result * TRIIODOTHYRONINE TOTAL , TT-3 (08/10/2018) T3 TOTAL 106 08/10/2018 [facility] LABORAT[facility] Final Result * THYROXINE, FREE (FT4) (08/10/2018) FREE T4 1.1 08/10/2018 [facility] LAB[facility]AT[facility] Final Result * THYROID STIM HORMONE, TSH (08/10/2018) TSH 1.85 08/10/2018 [facility] LAB[facility] Final Result * HEMOGLOBIN, GLYCOSYLATED (08/10/2018) HGB A1C 5.7 08/10/2018 us [facility] Final Result * COMPREHENSIVE METABOLIC PANEL (08/10/2018) SODIUM S/P/B 137 POTASSIUM S/P/B 4.0 CO2 21 CHLORIDE S/P/B 102 GLUCOSE 105 mg/dL CALCIUM S/P/B 9.3 BUN 18 CREATININE S/P/B 1.07 0.7 - 1.3 EGFR AFR. AMER. 96 EGFR NON-AFR. AMER. 83 <=90 ALKALINE PHOSPHATASE S/P/B 63 ALT 35 AST 25 BILIRUBIN TOTAL S/P/B 1.4 ALBUMIN S/P/B 4.7 3.5 - 5.0 TOTAL PROTEIN S/P/B 7.4 GLOBULIN 2.7 08/10/2018 us [facility] LAB[facility] Final Result documented in this encounter Visit Diagnoses Not on filedocumented in this encounter Care Teams Carton Stenciler Relationship Specialty Start Date End Date Nieves Helton MD PCP - General 07/28/14 12/09/24 Mariah White NP [address] [facility] [address] [place] [address] PCP - General 12/10/24 Angelo Patterson MD Three [facility]. [place] [address] [place] [address] [place] Merchandise Flow Manager CARDIOVASCULAR DISEASE 12/01/17 documented as of this encounter
== END 2024-12-24 11:54 | disposition short-term general hospital (02) ==
PROVIDERS: Emergency Provider Nurse Practitioner Family; PCP Nurse Practitioner
DX: R10.31 Right lower quadrant pain (principal); Z20.822 Contact with and (suspected) exposure to COVID-19; Z79.82 Long term (current) use of aspirin
CPT/HCPCS: 87426; 87804; 99212; G0463

== ENCOUNTER 2024-12-24 12:28 | Observation (INO) | payer OTHER, SELFPAY ==
[2024-12-24] VITALS (9 sets, daily range): BP systolic 125–162; BP diastolic 76–92; PULSE 71–88; RESP 14–20; TEMP 36.6–36.7; O2SAT 92–100; BMI 34.9
--- NOTE | ~2024-12-24 | CT_ITS ---
CLINICAL INDICATION: Right lower quadrant pain COMPARISON: None. TECHNIQUE: Multiple contiguous axial images of the abdomen and pelvis were performed following the ad ministration of with 100 mL Omnipaque-350 intravenous contrast The dose-length product (DLP) was 1478.69 mGy-cm. Automated exposure control and iterative reconstruction technique were employed. FINDINGS/OBSERVATIONS: Visualized lower thorax: The bilateral lung bases are clear. The heart is of normal size, without pericardial effusion. Small hiatal hernia is present. Liver: The liver enhances homogeneously and is not enlarged measuring 18 cm in longitudinal dimension Gallbladder and biliary system: The gallbladder is only minimally distended, and otherwise unremarkable. Pancreas: The pancreas enhances homogeneously without ductal dilatation. Spleen: The spleen enhances homogeneously and is not enlarged measuring 6 cm in longitudinal dimension. Kidneys: The bilateral kidneys enhance symmetrically without hydronephrosis or renal calculi. Adrenal glands: Unremarkable. Gastrointestinal tract: Trace fecal stasis within the colon. Appendix: The appendix demonstrates a thickened, hyperemic wall with dilatation (to 12 mm) and surrounding infl ammatory change, findings consistent with acute appendicitis. Vasculature: Unremarkable. Lymph nodes: No pathologically enlarged or morphologically suspicious lymph nodes within the retroperitoneum or at the root of the mesentery. Pelvic structures: The bladder is only minimally distended, and otherwise unremarkable. The prostate gland is not enlarged. Body wall and musculoskeletal: No significant degenerative disease within the lower thoracic or lumbosacral spine. IMPRESSION: Acute appendicitis, as detailed above. No drainable fluid collection. No gross perforation. Reviewed, dictated and finalized at location A. UP MECHANIC AUTOMATIC LINE
--- NOTE | 2024-12-24 15:15 | ED.ABDPAIN ---
HPI - Abdominal Pain General Chief Complaint: Abdominal Pain Stated Complaint: UC suspected appendicitis, RLQ abd. pain Focused HPI: This is a 54-year-old male who presents to the ED for chief complaint of for 5 days of lower abdominal pain. States that it has been worsening over the past couple of days and more localized to the right lower quadrant. He was seen in urgent care prior to arrival who wanted him seen here to rule out appendicitis. States that he has had pain from kidney stones in the past this does not feel similar, however he is having some pain that is radiating to his right flank. Denies fevers, chills, diarrhea, urinary symptoms or problems with bowel movements. GENERAL: Well-appearing, well-nourished, and in no acute distress. HEAD: Normocephalic, atraumatic. CHEST: Clear to auscultation. No respiratory distress. HEART: Regular rate and rhythm. ABD: Mild tenderness to the right lower quadrant. Soft and otherwise nontender NEURO: Alert and oriented x3. Patient screened in triage and initial orders placed. Additional care and disposition to be based upon diagnostic testing and treatment. Source: patient Mode of arrival: ambulatory Limitations: no limitations Related Data Home Medications ?Medication ?Instructions ?Recorded ?Confirmed ?Last Taken ?Type aspirin 81 mg chewable tablet 81 mg PO DAILY 09/27/22 09/27/22 Unknown History atorvastatin 80 mg tablet 80 mg PO DAILY 09/27/22 09/27/22 Unknown History losartan 50 mg tablet 50 mg PO DAILY 09/27/22 09/27/22 Unknown History metoprolol succinate 25 mg 25 mg PO DAILY 09/27/22 09/27/22 Unknown History tablet,extended release 24 hr pantoprazole 40 mg tablet,delayed 40 mg PO DAILY 09/27/22 09/27/22 Unknown History release Allergies Allergy/AdvReac Type Severity Reaction Status Date / Time No Known Allergies Allergy Verified 12/24/24 12:34 Course Vital Signs Vital signs: Vital Signs Temperature 98.1 F 12/24/24 12:34 Pulse Rate 88 12/24/24 12:34 Respiratory Rate 18 12/24/24 12:34 Blood Pressure 160/84 H 12/24/24 12:34 Pulse Oximetry 98 12/24/24 12:34 Temperature 98.1 F 12/24/24 12:34 Pulse Rate 88 12/24/24 12:34 Respiratory Rate 18 12/24/24 12:34 Blood Pressure 160/84 H 12/24/24 12:34 Pulse Oximetry 98 12/24/24 12:34 Discharge Plan Discharge Instructions: Antibiotic Form Patient Language: Telugu Prescriptions: No Action losartan 50 mg tablet 50 mg PO DAILY atorvastatin 80 mg tablet 80 mg PO DAILY pantoprazole 40 mg tablet,delayed release (DR/EC) 40 mg PO DAILY aspirin [Adult Aspirin] 81 mg Tablet,Chewable 81 mg PO DAILY metoprolol succinate 25 mg tablet extended release 24 hr 25 mg PO DAILY prednisone 50 mg tablet 50 mg PO DAILY 5 Days Qty: 5 0RF amoxicillin-pot clavulanate 875-125 mg tablet 1 tablet PO Q12H 10 Days Qty: 20 0RF Follow-up/Referrals: Cindy,Mariah Cowan APRN [Primary Care Provider] -
--- NOTE | 2024-12-24 16:20 | ED_ITS ---
HPI - Abdominal Pain General Chief Complaint: Abdominal Pain Stated Complaint: UC suspected appendicitis, RLQ abd. pain Time Seen by Provider: 12/24/24 16:20 Source: patient Mode of arrival: ambulatory Limitations: no limitations History of Present Illness HPI narrative: 54 YEARS OLD WHITE MALE CAME TO THE ED WITH RIGHT LOWER QUADRANT PAIN STARTED 4 DAYS, INTERMITTENT GETTING WORSE ASSOCIATED WITH NAUSEA AND CHILLS. PATIENT DENIES ANY FEVER OR VOMITING. HISTORY OF UMBILICAL HERNIA REPAIR YEARS AGO, HYPERTENSION, HYPERLIPIDEMIA. LAST MEAL WAS LAST NIGHT. Related Data Home Medications ?Medication ?Instructions ?Recorded ?Confirmed ?Last Taken ?Type aspirin 81 mg chewable tablet 81 mg PO DAILY 09/27/22 09/27/22 Unknown History atorvastatin 80 mg tablet 80 mg PO DAILY 09/27/22 09/27/22 Unknown History losartan 50 mg tablet 50 mg PO DAILY 09/27/22 09/27/22 Unknown History metoprolol succinate 25 mg 25 mg PO DAILY 09/27/22 09/27/22 Unknown History tablet,extended release 24 hr pantoprazole 40 mg tablet,delayed 40 mg PO DAILY 09/27/22 09/27/22 Unknown History release Allergies Allergy/AdvReac Type Severity Reaction Status Date / Time No Known Allergies Allergy Verified 12/24/24 16:21 Review of Systems 2 Review of Systems: All systems reviewed & are unremarkable except as noted in HPI and below Exam 2 Narrative: GENERAL APPEARANCE: WELL-DEVELOPED, WELL-NOURISHED SKIN: NORMAL COLOR HEAD: NORMOCEPHALIC, NONTRAUMATIC EYES: CLEAR CONJUNCTIVA ENT: OROPHARYNX NORMAL, EARS NORMAL, NOSE NORMAL NECK: SUPPLE, NONTENDER CHEST AND RESPIRATORY: AIRWAY PATENT, NO RESPIRATORY DISTRESS, NO ACCESSORY MUSCLE USE HEART: REGULAR RATE/RHYTHM ABDOMEN: SOFT, SEVERE TENDERNESS RIGHT LOWER QUADRANT, POSITIVE GUARDING AND REBOUND, NO ORGANOMEGALY, QUIET BOWEL SOUNDS VASCULAR: NORMAL PERIPHERAL PULSES, NORMAL CAPILLARY REFILL. MUSCULOSKELETAL: NORMAL RANGE OF MOTION, NONTENDER BACK NEUROLOGIC: ALERT AND ORIENTED ?3, TELEVISION REPAIRER IS NORMAL TESTED, NO GROSS MOTOR DEFICIT Course Vital Signs Vital signs: Vital Signs Temperature 36.7 C 12/24/24 12:34 Pulse Rate 88 12/24/24 12:34 Respiratory Rate 18 12/24/24 12:34 Blood Pressure 160/84 H 12/24/24 12:34 Pulse Oximetry 98 12/24/24 12:34 Temperature 36.7 C 12/24/24 12:34 Pulse Rate 77 12/24/24 16:22 Respiratory Rate 20 12/24/24 16:22 Blood Pressure 133/92 H 12/24/24 16:22 Pulse Oximetry 98 12/24/24 16:22 MDM - Abdominal Pain MDM Narrative Medical decision making narrative: PATIENT CAME WITH RIGHT LOWER QUADRANT PAIN VITAL SIGNS ARE STABLE PHYSICAL EXAMINATION CONSISTENT WITH TENDERNESS AND GUARDING OF THE RIGHT LOWER QUADRANT DIFFERENTIAL DIAGNOSIS ACUTE APPENDICITIS, URINARY TRACT INFECTION, DIVERTICULITIS, COLITIS, CONSTIPATION, KIDNEY STONE BLOOD WORKUP TODAY INCLUDES CBC, CMP, LIPASE SHOWED WBC OF 12.1 OTHERWISE WITHIN NORMAL LIMIT URINALYSIS SHOWS NO ACUTE ABNORMALITY CT ABDOMEN AND PELVIS WITH IV CONTRAST SHOWED FINDINGS CONSISTENT WITH ACUTE APPENDICITIS ADMIT TO DR. MANRIQUEZ PATIENT STARTED ON ZOSYN, IV FLUID. DECLINED ANY PAIN MEDICATION AT THIS TIME Differential Diagnosis Differential diagnosis: Likely other ( ABOVE) Medical Records Attestation: I reviewed the patient's medical records. Lab Data Attestation: I reviewed the patient's lab results. 12/24/24 16:25 12/24/24 16:25 Labs: Lab Results 12/24/24 Range/Units 16:25 WBC 12.1 H (4.5-10.0) K/mm3 RBC 5.49 (4.6-6.20) M/mm3 Hgb 17.5 (14.0-18.0) g/dL Hct 51.2 (42.0-52.0) % MCV 93.3 (80-100) fl MCH 31.9 (26-34) pg MCHC 34.2 (32-36) g/dl RDW 12.8 (11.5-14.5) % Plt Count 201 (150-375) k/mm3 MPV 11.1 H (7.4-10.4) fl Immature Gran % (Auto) 1.0 H (0-0.5) % Neut % (Auto) 79.6 H (45.5-73.1) % Lymph % (Auto) 12.1 L (18.3-44.2) % [place] % (Auto) 6.6 (2.6-8.5) % Eos % (Auto) 0.4 (0-4.4) % Baso % (Auto) 0.3 (0.2-1.2) % Lymph # (Auto) 1.47 (0.9-3.2) K/mm3 [place] # (Auto) 0.8 H (0.1-0.6) K/mm3 Eos # (Auto) 0.1 (0-0.3) K/mm3 Baso # (Auto) 0.0 (0.0-0.1) K/mm3 Abs Immat Gran (auto) 0.12 H (0.00-0.031) K/mm3 Absolute Neuts (auto) 9.6 H (1.3-6.7) K/mm3 Absolute Nucleated RBC 0.000 (0.0-0.012) K/mm3 Nucleated RBC % 0.0 (0.0-0.2) % Sodium 135 L (137-145) mmol/L Potassium 4.4 (3.4-5.0) mmol/L Chloride 100 (98-107) mmol/L Carbon Dioxide 26 (22-30) mmol/L Anion Gap 9 (4-12) mmol/L BUN 14 (9-20) mg/dL Creatinine 0.82 (0.7-1.3) mg/dL Estim Creat Clear Calc 118 ml/min Estimated GFR > 60 (59 - ) Glucose 91 (65-110) mg/dL Calcium 9.3 (8.4-10.2) mg/dL Total Bilirubin 1.2 (0.2-1.3) mg/dL AST 46 (17-59) U/L ALT 60 H (6-50) U/L Alkaline Phosphatase 55 (38-126) U/L Total Protein 8.0 (6.3-8.2) g/dL Albumin 4.7 (3.5-5.1) g/dL Lipase 91 (23-300) U/L Urine Color Yellow (Yellow) Urine Appearance Clear (Clear) Urine pH 7.5 (5.0-9.0) Ur Specific [place] 1.021 (1.001-1.035) Urine Protein Negative (Negative) mg/dL Urine Glucose (UA) Negative (Negative) mg/dL Urine Ketones Negative (Negative) mg/dL Ur Blood (Man) Negative (Negative) Urine Nitrate Negative (Negative) Urine Bilirubin Negative (Negative) Urine Urobilinogen 0.2 (<2.0) mg/dL Leukocyte Esterase Rfl Negative (Negative) JOHN/UL Imaging Data Radiologist's impression: ITS Impressions Abdomen/Pelvis CT 12/24/24 17:22 IMPRESSION: Acute appendicitis, as detailed above. No drainable fluid collection. No gross perforation. Critical Care Time Critical Care Time Critical Care Time: No Discharge Plan Discharge Clinical Impression: Acute appendicitis Patient Disposition: Home, Self-Care Condition: Stable Patient Language: Icelandic Prescriptions: No Action losartan 50 mg tablet 50 mg PO DAILY atorvastatin 80 mg tablet 80 mg PO DAILY pantoprazole 40 mg tablet,delayed release (DR/EC) 40 mg PO DAILY aspirin [Adult Aspirin] 81 mg Tablet,Chewable 81 mg PO DAILY metoprolol succinate 25 mg tablet extended release 24 hr 25 mg PO DAILY prednisone 50 mg tablet 50 mg PO DAILY 5 Days Qty: 5 0RF amoxicillin-pot clavulanate 875-125 mg tablet 1 tablet PO Q12H 10 Days Qty: 20 0RF
[2024-12-24 16:30] LABS: Basophils Percent Auto 0.3 % (0.2-1.2); Eosinophils Absolute Auto 0.1 K/mm3 (0-0.3); Eosinophils Percent Auto 0.4 % (0-4.4); Hematocrit 51.2 % (42.0-52.0); Hemoglobin 17.5 g/dL (14.0-18.0); Immature Granulocyte Absolute 0.12 K/mm3 (0.00-0.031); Lymphocytes Absolute Auto 1.47 K/mm3 (0.9-3.2); Lymphocytes Percent Auto 12.1 % (18.3-44.2); Mean Corpuscular HGB Conc 34.2 g/dl (32-36); Mean Corpuscular Hemoglobin 31.9 pg (26-34); Mean Corpuscular Volume 93.3 fl (80-100); Mean Platelet Volume 11.1 fl (7.4-10.4); Monocytes Absolute Auto 0.8 K/mm3 (0.1-0.6); Monocytes Percent Auto 6.6 % (2.6-8.5); Neutrophils Absolute Auto 9.6 K/mm3 (1.3-6.7); Neutrophils Percent Auto 79.6 % (45.5-73.1); Platelet Count Result 201 k/mm3 (150-375); Red Blood Count 5.49 M/mm3 (4.6-6.20); Red Cell Distribution Width 12.8 % (11.5-14.5); White Blood Count 12.1 K/mm3 (4.5-10.0)
[2024-12-24 16:32] LABS: Add Urine Microscopic? NO; Appearance Urine Clear (Clear); Bilirubin Urine Negative (Negative); Blood Urine Negative (Negative); Color Urine Yellow (Yellow); Glucose Urine UA Negative (Negative); Ketones Urine Negative (Negative); Leukocyte Esterase Ur Negative LEU/UL (Negative); Nitrate Urine Negative (Negative); Protein Urine Negative (Negative); Specific Grav Ur 1.021 (1.001-1.035); Urobilinogen Urine 0.2 mg/dL (<2.0); pH Urine 7.5 (5.0-9.0)
[2024-12-24 16:52] LABS: Alanine Aminotransferase 60 U/L (6-50); Albumin Level 4.7 g/dL (3.5-5.1); Alkaline Phosphatase 55 U/L (38-126); Anion Gap 9 mmol/L (4-12); Aspartate Amino Transferase 46 U/L (17-59); Bilirubin,Total 1.2 mg/dL (0.2-1.3); Blood Urea Nitrogen 14 mg/dL (9-20); Calcium 9.3 mg/dL (8.4-10.2); Carbon Dioxide 26 mmol/L (22-30); Chloride 100 mmol/L (98-107); Estimated CRCL calculation 118 ml/min; Estimated Glomerular Filt Rate > 60; Glucose 91 mg/dL (65-110); Lipase 91 U/L (23-300); Potassium 4.4 mmol/L (3.4-5.0); Sodium 135 mmol/L (137-145)
[2024-12-24] MEDS: SODIUM CHLORIDE 0.9% IV 1,000 ML 999 ML IV CONT (18:21)
[2024-12-24] MEDS: PIPERACILLN/TAZ 3.375GM/NS50ML 3.375 GM/50 ML BAG IVPB ×2 (18:23→23:05)
--- OUTSIDE RECORDS SUMMARY | 2024-12-24 18:40 | XMS_ITS | Encounter Summary ---
Author Organization [facility] Address [address] [place] [address] Care Team Providers Care Clin Nurse Name Role Phone Nieves Helton MD Primary Care Provider [phone] Angelo Patterson MD Unavailable [phone] Mariah White NP Primary Care Provider Encounter Details Date Type Department Care Team (Late st Contact Info) Description 09/13/2022 MyChart Message Enc [facility] Medical Group Family Medicine - [place] [address] [facility] [place] [address] [place] [address] [place] [address] Yannickgovrandy Social History Tobacco Use Types Packs/Day [...] Sex Assigned at Male 12/11/2024 10:38 AM INTERNAL SPECIALIST Legal Sex Male 6:21 PM CDT Gender Identity Male 12/11/2024 10:38 AM INTERNAL SPECIALIST Sexual Orientation Straight 04/14/2022 11 :33 AM CDT Occupation Industry Job Start Date Job End Date Not on file Not on file Not on file Not on file documented as of this encounter Plan of Treatment Upcoming Encounters Date Type Department Care Team (Late st Contact Info) Description 01/22/2025 9:40 AM CDT Office Visit [facility] Medical Group Multispecialty Care - [place] [address] [place] [address] Mariah White, HEADLIGHT ASSEMBLER [address] [place] [address] 02/14/2025 8:30 AM CDT [facility] [place] [address] [place], [place] [phone] Angelo Patterson MD [facility]. [address] [place] [address] documented as of this encounter Visit Diagnoses Not on filedocumented in this encounter Care Teams Clin Nurse Relationship Specialty Start Date End Date Nieves Helton MD PCP - General 07/28/14 12/09/24 Mariah White HEADLIGHT ASSEMBLER [address] [facility] [address] [place] [address] PCP - General 12/10/24 Angelo Patterson MD [facility]. [address] [place], [place] [address] [place] Environmental Engineering Manager CARDIOVASCULAR DISEASE 12/01/17 documented as of this encounter
--- OUTSIDE RECORDS SUMMARY | 2024-12-24 18:40 | XMS_ITS | Encounter Summary ---
Author Organization [facility] - [facility] Address [address] [place] [address] Care Team Providers Care Reverberatory Furnace Operator Name Role Phone Nieves Helton MD Primary Care Provider [phone] Angelo Patterson MD Unavailable [phone] Mariah White NP Primary Care Provider [phone] Encounter Details Date Type Department Care Team (Latest Contact Info) Description 09/04/2018 Abstract [facility] Medical Group Rahul Handy MD Social History Tobacco Use Types Packs/Day Years Used Date Smoking Tobacco: Never Smokeless Tobacco: Never Alcohol Use Standard Drinks/Week Comments Yes 0 (1 standard drink = 0.6 oz pur e alcohol) Occasional Sex and Gender Information Value Date Recorded Sex Assigned at Male 12/11/2024 10:38 AM SUPERVISOR KENNEL Legal Sex Male 6:21 PM CDT Gender Identity Male 12/11/2024 10:38 AM SUPERVISOR KENNEL Sexual Orientation Straight 04/14/2022 11 :33 AM CDT Occupation Industry Job Start Date Job End Date Not on file Not on file Not on file Not on file documented as of this encounter Plan of Treatment Upcoming Encounters Date Type Department Care Team (Late st Contact Info) Description 01/22/2025 9:40 AM CDT Office Visit [facility] Medical Group Multispecialty Care - [place] [address] [place] [address] Mariah White NP [address] [place] [address] 02/14/2025 8:30 AM CDT Office Visit [facility] THREE [facility], [facility] [address] [place] [address] Angelo Patterson MD [facility]. [facility] [address] [place], [place] [id number] documented as of this encounter Visit Diagnoses Not on filedocumented in this encounter Care Teams Reverberatory Furnace Operator Relationship Specialty Start Date End Date Nieves Helton MD PCP - General 07/28/14 12/09/24 Mariah White NP [address] [facility] [address] [place] [address] PCP - General 12/10/24 Angelo Patterson MD [facility]. [facility] [address] [place], [place] [id number] [place] Damage Cutter CARDIOVASCULAR DISEASE 12/01/17 documented as of this encounter
--- OUTSIDE RECORDS SUMMARY | 2024-12-24 18:40 | XMS_ITS | Encounter Summary ---
Author Organization [facility] - [facility] Address [address] [place] [address] Care Team Providers Care Claims Manager Name Role Phone Nieves Helton MD Primary Care Provider [phone] Angelo Patterson MD Unavailable [phone] Mariah White NP Primary Care Provider Encounter Details Date Type Department Care Team (Late st Contact Info) Description 12/11/2023 MyCCopiunt Message Enc [facility] Medical Group Multispecialty Care - [facility] [address] [facility], [address] [place] [phone] Bernadette Kinney NP [address] [facility] [address] [place] [address] Test Results Social History Tobacco [...] Sex Assigned at Male 12/11/2024 10:38 AM CRANE OPERATOR Legal Sex Male 6:21 PM CDT Gender Identity Male 12/11/2024 10:38 AM CRANE OPERATOR Sexual Orientation Straight 04/14/2022 11 :33 AM CDT Occupation Industry Job Start Date Job End Date Not on file Not on file Not on file Not on file documented as of this encounter Plan of Treatment Upcoming Encounters Date Type Department Care Team (Late st Contact Info) Description 01/22/2025 9:40 AM CDT Office Visit [facility] Medical Group Multispecialty Care - [place] [address] [place] [address] Mariah White, MILDRED [address] [place] [address] 02/14/2025 8:30 AM CDT Office Visit [place] [facility] THREE [facility], [place] [address] [place], [place] [id number] Angelo Patterson MD [facility]. [place] [address] [place], [place] [phone] documented as of this encounter Visit Diagnoses Not on filedocumented in this encounter Care Teams Claims Manager Relationship Specialty Start Date End Date Nieves Helton MD PCP - General 07/28/14 12/09/24 Mariah White NP [address] [facility] [address] [place] [address] PCP - General 12/10/24 Angelo Patterson MD [facility]. [place] [address] [place], [place] [address] [place] Full Charge Bookkeeper CARDIOVASCULAR DISEASE 12/01/17 documented as of this encounter
--- OUTSIDE RECORDS SUMMARY | 2024-12-24 18:40 | XMS_ITS | Encounter Summary ---
Author Organization [facility] - [facility] Address [address] [place] [address] Care Team Providers Care Brokerage Clerk Name Role Phone Angelo Patterson MD Unavailable [phone] Mariah White NP Primary Care Provider [phone] Encounter Details Date Type Department Care Team (Late st Contact Info) Description 12/16/2024 MyChart Message Enc [facility] Medical Group Multispecialty Care - [place] [address] [place] [address] Mariah White NP [address] [place] [address] [employer] Social History Tobacco Use [...] Sex Assigned at Male 12/11/2024 10:38 AM EMERGENCY MEDICAL TECHNICIAN Legal Sex Male 6:21 PM CDT Gender Identity Male 12/11/2024 10:38 AM EMERGENCY MEDICAL TECHNICIAN Sexual Orientation Straight 04/14/2022 11 :33 AM CDT Occupation Industry Job Start Date Job End Date Not on file Not on file Not on file Not on file documented as of this encounter Plan of Treatment Upcoming Encounters Date Type Department Care Team (Late st Contact Info) Description 01/22/2025 9:40 AM CDT Office Visit [facility] Medical Group Multispecialty Care - [place] [address] [place] [address] Mariah White, MILDRED [address] [place] [address] 02/14/2025 8:30 AM CDT Office Visit [place] [facility] [facility], [place] [place] [address] Angelo Patterson MD [facility]. [place] [address] [place], [place] [phone] documented as of this encounter Visit Diagnoses Not on filedocumented in this encounter Additional Health Concerns Assessment Noted Time PHQ-9 Depression Total Score: 14 025 1:17 PM EMERGENCY MEDICAL TECHNICIAN documented as of this encounter Care Teams Brokerage Clerk Relationship Specialty Start Date End Date Mariah White NP [address] [place] [address] PCP - General 12/10/24 Angelo Patterson MD [facility] [place] [address] [place], [place] [phone] [place] Engineering Scientist CARDIOVASCULAR DISEASE 12/01/17 documented as of this encounter
--- OUTSIDE RECORDS SUMMARY | 2024-12-24 18:40 | XMS_ITS | Clinical Summary ---
Author Organization [facility] Address [address] [place] [address] Care Team Providers Care Behavioral Health Director Name Role Phone Angelo Patterson MD Unavailable [phone] Mariah White NP Primary Care Provider [phone] Allergies No known active allergies Medications aspirin [...] obesity type ([facility]) 12/11/2024 Tubular adenoma of colon 12/11/2024 Essential (primary) hypertension 05/24/2024 Gastroesophageal reflux dise ase, unspecified whether esophagitis present 10/25/2023 Prediabetes 05/20/2022 Palpitations 07/13/2021 Pure hypercholesterolemia 04/07/2020 Ischemic cardiomyopathy 04/07/2020 Coronary artery disease invo lving [place] coronary artery of [place] heart without angina pectoris 01/10/2018 STEMI involving left anterio r descending coronary artery ([facility]) 11/20/2017 Resolved Problems Problem Noted Date Diagnosed Date Resolved Date Screening for colon cancer 10/25/2023 0 10/30/2023 Encounters Date Type Department Care Team Description 12/16/2024 Telephone [facility] [place] [address] [facility] [address] [place] [address] Mariah White, DYE STAND LOADER Prior Authorization 12/16/2024 SNAPCARDhart Message [facility] [address] [facility] [address] [place] [address] Mariah Whiet, MILDRED Anton 12/11/2024 10:20 AM HEAD CHOPPER [facility] [address] [place] [address] Mariah White, DYE STAND LOADER New Patient 12/11/2024 Travel from Last 3 [...] Sex Assigned at Male 12/11/2024 10:38 AM HEAD CHOPPER Legal Sex Male 6:21 PM CDT Gender Identity Male 12/11/2024 10:38 AM HEAD CHOPPER Sexual Orientation Straight 04/14/2022 11 :33 AM CDT Occupation Industry Job Start Date Job End Date Not on file Not on file Not on file Not on file Last Filed Vital Signs Vital Sign Reading Time Taken Comments Blood Pressure 142/90 12/11/2024 11:36 AM HEAD CHOPPER Pulse 64 12/11/2024 10:38 AM HEAD CHOPPER Temperature 36.8 C (98.3 F) 12/11/2024 10:38 AM HEAD CHOPPER Respiratory Rate 18 12/11/2024 10:38 AM HEAD CHOPPER Oxygen Saturation 98% 12/11/2024 10:38 AM HEAD CHOPPER Inhaled Oxygen Concentration - - Weight 114 kg (251 lb 6.4 oz) 12/11/2024 10:38 A M HEAD CHOPPER Height 180.3 cm (5' 11 ) 12/11/2024 10:38 AM HEAD CHOPPER Body Mass Index 35.06 12/11/2024 10:38 AM HEAD CHOPPER Plan of Treatment Upcoming Encounters Date Type Department Care Team (Late st Contact Info) Description 01/22/2025 9:40 AM CDT Office Visit [facility] Medical Group Multispecialty Care - [place] [address] [facility] [address] [place] [address] Mariah White, DYE STAND LOADER [address] [place] [address] 02/14/2025 8:30 AM CDT Office Visit [facility] THREE [facility], [facility] [address] [place] [address] Angelo Patterson MD Three [facility]. [facility] [address] [place] [address] Health Maintenance Due Date Last Done Comments [...] Colonoscopy (10 Years) 12/08/2033 12/08/2023 PHQ-2 (Physician [place]) Completed 12/11/2024 Meningococcal B Vaccine Aged Out No l onger eligible based on patient's age to complete this topic Meningococcal Vaccine Aged Out No linda alberto eligible based on patient's age to complete this topic RSV Immunizations Under 20 Months Aged Out No longer eligible based on patient's age to complete this topic Medical Devices Implanted Type Area Enameler Device Identifier Shelf Expiration Date Model / Serial / Lot Stent Stent Heart Procedures Procedure Name Priority Date/Time Associated Diagnosis Comments LIPID PANEL Routine 04/19/2022 8:51 AM CDT Pure hypercholesterolemia Coronary artery disease involving [place] coronary artery of [place] heart without angina pectoris from Last 3 Months or Most Recently Relevant to Health Maintenance Results * (ABNORMAL) LIPID PANEL (04/19/2022 8:51 AM CDT) CHOLESTEROL 112 <200 MG/DL 04/19/2022 10:06 AM CDT [facility] TRIGLYCERIDES 108 <150 MG/DL 04/19/2022 10:06 AM CDT [facility] HDL 40(L) >40.0 MG/DL 04/19/2022 10:06 AM CDT [facility] LDL (CALCULATED) 50 <100 MG/DL 04/19/20 10:06 AM CDT [facility] NON HDL CHOLESTEROL 72 <130 MG/DL 04/19 10:06 AM CDT [facility] CHOL/HDL RATIO 2.8 0.0 - 4.5 04/19/2022 10:06 AM T [facility] VLDL CALCULATION 22 5 - 55 MG/DL 04/19/2022 10:06 AM CDT [facility] LIPID INTERPRETATION 04/19/2022 10:06 AM CDT [facility] Comment: [facility] CONCENSUS REPORT RECOMMENDATIONS: ADULT CHILD LOW RISK: CHOLESTEROL <200 <170 TRIGLYCERIDE <150 --- HDL >=60 --- LDL <100 <110 BORDERLINE: CHOLESTEROL 200-239 170-199 TRIGLYCERIDE 150-199 --- HDL 40-59 --- LDL 100-159 110-129 HIGH RISK: CHOLESTEROL >=240 >=200 TRIGLYCERIDE >=200 --- HDL <40 --- LDL >=160 >=130 04/19/2022 8:51 AM CDT us Nieves Helton MD LABORATORY Final Result [facility] [address] [place] [address], [place] [phone] from Last 3 Months or Most Recently Relevant to Health Maintenance Insurance [facility] Care Teams Behavioral Health Director Relationship Specialty Start Date End Date Mariah White NP [address] [facility] [address] [place] [address] PCP - General 12/10/24 Angelo Patterson MD [facility] [address] [place] [address] [place] Hydrotechnical Specialist CARDIOVASCULAR DISEASE 12/01/17
--- OUTSIDE RECORDS SUMMARY | 2024-12-24 18:40 | XMS_ITS | Encounter Summary ---
Author Organization [facility] Address [address] [place] [address] Care Team Providers Care Wastewater Treatment Supervisor Name Role Phone Nieves Helton MD Primary Care Provider [phone] Angelo Patterson MD Unavailable Mariah White NP Primary Care Provider Encounter Details Date Type Department Care Team (Late st Contact Info) Description 05/24/2024 MyChart Message Enc [facility] Medical Group Family Medicine - [place] [address] [place] [address] [place] [address] [place] [address] [place] Social History Tobacco Use Types Packs/Day [...] Sex Assigned at Male 12/11/2024 10:38 AM SIMPLEX PRINTER INSTALLER Legal Sex Male 6:21 PM CDT Gender Identity Male 12/11/2024 10:38 AM SIMPLEX PRINTER INSTALLER Sexual Orientation Straight 04/14/2022 11 :33 AM CDT Occupation Industry Job Start Date Job End Date Not on file Not on file Not on file Not on file documented as of this encounter Plan of Treatment Upcoming Encounters Date Type Department Care Team (Late st Contact Info) Description 01/22/2025 9:40 AM CDT Office Visit [facility] Medical Group Multispecialty Care - [place] [address] [place] [address] Mariah White, MILK DRYING MACHINE OPERATOR [address] [place] [address] 02/14/2025 8:30 AM CDT Office Visit [place] [facility] THREE [facility], [place] [address] [place], [place] [phone] Angelo Patterson MD [facility]. [place] [address] [place], [place] [phone] documented as of this encounter Visit Diagnoses Not on filedocumented in this encounter Care Teams Wastewater Treatment Supervisor Relationship Specialty Start Date End Date Nieves Heltno MD PCP - General 07/28/14 12/09/24 Mariah White NP [address] [facility] [address] [place] [address] PCP - General 12/10/24 Angelo Patterson MD [facility]. [place] [address] [place], [place] [phone] [place] Entry Level Electrical Engineer CARDIOVASCULAR DISEASE 12/01/17 documented as of this encounter
--- OUTSIDE RECORDS SUMMARY | 2024-12-24 18:40 | XMS_ITS | Encounter Summary ---
Author Organization [facility] Address [address] [place] [address] Care Team Providers Care Water Quality Assistant Name Role Phone Nieves Helton MD Primary Care Provider [phone] Angelo Patterson MD Unavailable [phone] Mariah White NP Primary Care Provider [phone] Encounter Details Date Type Department Care Team (Late st Contact Info) Description 11/24/2017 Hospital Follow-up Call [facility] [address]metry [address] [place], [place] [phone] Margo Urrutia RN Social History Tobacco Use Types Packs/Day Years Used Date Smoking Tobacco: Never Smokeless Tobacco: Never Alcohol Use Standard Drinks/Week Comments Yes 0 (1 standard drink = 0.6 oz pur e alcohol) Occasional Sex and Gender Information Value Date Recorded Sex Assigned at Male 12/11/2024 10:38 AM TOPOGRAPHICAL FIELD ASSISTANT Legal Sex Male 6:21 PM CDT Gender Identity Male 12/11/2024 10:38 AM TOPOGRAPHICAL FIELD ASSISTANT Sexual Orientation Straight 04/14/2022 11 :33 AM CDT documented as of this encounter Plan of Treatment Upcoming Encounters Date Type Department Care Team (Late st Contact Info) Description 01/22/2025 9:40 AM CDT Office Visit [facility] Medical Group Multispecialty Care - [address] [place] [address] Mariah White, BUSINESS OPERATIONS MANAGER [address] [facility] [address] [place] [address] 02/14/2025 8:30 AM CDT Office Visit [facility] THREE [facility], [place] [address] [place], [place] [phone] Angelo Patterson MD Three [facility]. [place] [address] [place], [place] [address] documented as of this encounter Visit Diagnoses Not on filedocumented in this encounter Care Teams Water Quality Assistant Relationship Specialty Start Date End Date Nieves Helton MD PCP - General 07/28/14 12/09/24 Mariah White NP [address] [facility] [address] [place] [address] PCP - General 12/10/24 Angelo [facility] MD [facility] [address] [place], [place] [phone] [place] Liner Machine Operator Helper CARDIOVASCULAR DISEASE 12/01/17 documented as of this encounter
--- OUTSIDE RECORDS SUMMARY | 2024-12-24 18:40 | XMS_ITS | Encounter Summary ---
Author Organization [facility] Address [address] [place] [address] Care Team Providers Care Humanities Instructor Name Role Phone Nieves Helton MD Primary Care Provider [phone] Angelo Patterson MD Unavailable [phone] Mariah White NP Primary Care Provider [phone] Encounter Details Date Type Department Care Team (Late st Contact Info) Description 05/30/2022 MyChart Message Enc [facility] Medical Group Family Medicine - [place] [address] [facility] [place] [address] [place] [address] [place] [address] Weight Loss Meds Social History Tobacco Use [...] Assigned at Male 12/11/2024 10:38 AM MEDICAL RECORD TRANSCRIBER Legal Sex Male 6:21 PM CDT Gender Identity Male 12/11/2024 10:38 AM MEDICAL RECORD TRANSCRIBER Sexual Orientation Straight 04/14/2022 11 :33 AM [...] Description 01/22/2025 9:40 AM CDT Office Visit [facility] Medical Group Multispecialty Care - [place] [address] [place] [address] Mariah White, ASSISTANT GUEST SERVICES MANAGER [address] [facility] [address] [place] [address] 02/14/2025 8:30 AM CDT Office Visit [place] [facility] [address] [facility], [place] [address] [place], [place] [phone] Angelo Patterson MD [facility]. [facility] [address] [place], [place] [address] documented as of this encounter Visit Diagnoses Not on filedocumented in this encounter Care Teams Humanities Instructor Relationship Specialty Start Date End Date Nieves Helton MD PCP - General 07/28/14 12/09/24 Mariah White NP [address] [facility] [address] [place], [place] [phone] PCP - General 12/10/24 Angelo Patterson MD [facility]. [place] [address] [place], [place] [phone] [place] Ornamental Metal Fabricator Apprentice CARDIOVASCULAR DISEASE 12/01/17 documented as of this encounter
--- OUTSIDE RECORDS SUMMARY | 2024-12-24 18:40 | XMS_ITS | Encounter Summary ---
Author Organization [facility] Address [address] [place] [address] Care Team Providers Care Newspaper Correspondent Name Role Phone Nieves Helton MD Primary Care Provider [phone] Angelo Patterson MD Unavailable [phone] Mariah White NP Primary Care Provider [phone] Encounter Details Date Type Department Care Team (Late st Contact Info) Description 08/27/2018 Abstract [facility] at [address] [address] Adelita Howe MA Social History Tobacco Use Types Packs/Day Years Used Date Smoking Tobacco: Never Smokeless Tobacco: Never Alcohol Use Standard Drinks/Week Comments Yes 0 (1 standard drink = 0.6 oz pur e alcohol) Occasional Sex and Gender Information Value Date Recorded Sex Assigned at Male 12/11/2024 10:38 AM LAST DIPPER Legal Sex Male 6:21 PM CDT Gender Identity Male 12/11/2024 10:38 AM LAST DIPPER Sexual Orientation Straight 04/14/2022 11 :33 AM CDT Occupation Industry Job Start Date Job End Date Not on file Not on file Not on file Not on file documented as of this encounter Plan of Treatment Upcoming Encounters Date Type Department Care Team (Late st Contact Info) Description 01/22/2025 9:40 AM CDT Office Visit [facility] Medical Group Multispecialty [facility] [address] [place] [address] Mariah White, BATCH MIXER OPERATOR [address] [place] [address] 02/14/2025 8:30 AM CDT Office Visit [facility] [address] [facility] [address], [place] [address] [place], [place] [phone] Angelo Patterson MD Three [facility]. [place] [address] [place], [place] [phone] documented as of this encounter Procedures Procedure [...] * TRIIODOTHYRONINE TOTAL , TT-3 (11/12/2018) Pathologist [facility] T3 TOTAL 105 76 - 181 11/12/2018 us Doc [facility] LABORATORY Edited Resul t - Final * FOLATE (OUTSIDE LAB) (11/12/2018) Pathologist [facility] FOLATE 11.3 11/12/2018 [employer] [facility] Abstract LAB-OUTSIDE/ABSTRACTED Edite d Result - Final * CORTISOL (11/12/2018) [facility] CORTISOL FREE 0.30 11/12/2018 us Doc [facility] Abstract LABORATORY Edited Resul t - Final * CBC (OUTSIDE LAB) (11/12/2018) [facility] WBC 6.7 HGB 16.1 HCT 49.3 PLT 244 11/12/2018 us [employer] [facility] Abstract LAB-OUTSIDE/ABSTRACTED Edite d Result - Final * COMPREHENSIVE METABOLIC PANEL (11/12/2018) Pathologist [facility] SODIUM S/P/B 140 POTASSIUM S/P/B 4.5 CO2 [...] on filedocumented in this encounter Care Teams Newspaper Correspondent Relationship Specialty Start Date End Date Nieves Helton MD PCP - General 07/28/14 12/09/24 Mariah White NP [address] [facility] [address] [place] [address] PCP - General 12/10/24 Angelo Patterson MD Three [facility]. [place] [address] [place] [address] [place] Rn Dermatology CARDIOVASCULAR DISEASE 12/01/17 documented as of this encounter
--- OUTSIDE RECORDS SUMMARY | 2024-12-24 18:40 | XMS_ITS | Encounter Summary ---
Author Organization [facility] Address [address] [place] [address] Care Team Providers Care Slot Technician Name Role Phone Nieves Helton MD Primary Care Provider [phone] Angelo Patterson MD Unavailable [phone] Mariah White NP Primary Care Provider [phone] Encounter Details Date Type Department Care Team (Late st Contact Info) Description 12/28/2022 MyChart Message Enc [facility] Family Medicine - [place] [address], [address] [place] [address] [place] [address] [place] [address] Semaglutide Social History Tobacco Use Types Packs/Day [...] Sex Assigned at Male 12/11/2024 10:38 AM URBAN AND REGIONAL PLANNER Legal Sex Male 6:21 PM CDT Gender Identity Male 12/11/2024 10:38 AM URBAN AND REGIONAL PLANNER Sexual Orientation Straight 04/14/2022 11 :33 AM CDT Occupation Industry Job Start Date Job End Date Not on file Not on file Not on file Not on file documented as of this encounter Plan of Treatment Upcoming Encounters Date Type Department Care Team (Late st Contact Info) Description 01/22/2025 9:40 AM CDT Office Visit [facility] Multispecialty Care - [place] [address] [place] [address] Mariah White, MILDRED [address] [place] [address] 02/14/2025 8:30 AM CDT Office [facility], [address] [place], [place] [id number] Angelo Patterson MD [facility]. [address] [place] [address] documented as of this encounter Visit Diagnoses Not on filedocumented in this encounter Care Teams Slot Technician Relationship Specialty Start Date End Date Nieves Helton MD PCP - General 07/28/14 12/09/24 Mariah White INSERT MOLDING OPERATOR [address] [place] [address] PCP - General 12/10/24 Angelo Patterson MD [facility]. [address] [place], [place] [address] [place] Transportation Technician CARDIOVASCULAR DISEASE 12/01/17 documented as of this encounter
--- OUTSIDE RECORDS SUMMARY | 2024-12-24 18:40 | XMS_ITS | Encounter Summary ---
Author Organization [facility] Address [address] [place] [address] Care Team Providers Care Audiometric Technician Name Role Phone Nieves Helton MD Primary Care Provider [phone] Angelo Patterson MD Unavailable [phone] Mariah White NP Primary Care Provider Encounter Details Date Type Department Care Team (Late st Contact Info) Description 04/20/2022 MyChart Message Enc [facility] Family Medicine - [place] [address], [address] [place] [address] [place] [address] [place] [address] Tests Results Social History Tobacco Use Types [...] Sex Assigned at Male 12/11/2024 10:38 AM LOOM OVERHAULER Legal Sex Male 6:21 PM CDT Gender Identity Male 12/11/2024 10:38 AM LOOM OVERHAULER Sexual Orientation Straight 04/14/2022 11 :33 AM [...] [facility]ICAL [facility] Medical Group Multispecialty Care - [place] [address] [place] [address] Mariah White, MILDRED [address] [place] [address] 02/14/2025 8:30 AM CDT Office Visit [facility] [address] [facility], [address] [place] [address] Angelo Patterson MD [facility]. [address] [place], [place] [id number] documented as of this encounter Visit Diagnoses Not on filedocumented in this encounter Care Teams Audiometric Technician Relationship Specialty Start Date End Date Nieves Helton MD PCP - General 07/28/14 12/09/24 Mariah White COMPLIANCE INTERN [address] [place] [address] PCP - General 12/10/24 Angelo Patterson MD [facility]. [address] [place], [place] [address] [address] Boss CARDIOVASCULAR DISEASE 12/01/17 documented as of this encounter
--- OUTSIDE RECORDS SUMMARY | 2024-12-24 18:40 | XMS_ITS | Encounter Summary ---
Author Organization [facility] Address [address] [place] [address] Care Team Providers Care Microbiology Quality Control Technician Name Role Phone Nieves Helton MD Primary Care Provider [phone] Angelo Patterson MD Unavailable [phone] Mariah White NP Primary Care Provider [phone] Encounter Details Date Type Department Care Team (Late st Contact Info) Description 11/09/2023 LoggedIn Message Enc [facility] Family Medicine [facility] [address], [address] [place] [address] [facility] Provider Appointment Social History Tobacco Use [...] Sex Assigned at Male 12/11/2024 10:38 AM HEARING CARE PROFESSIONAL Legal Sex Male 6:21 PM CDT Gender Identity Male 12/11/2024 10:38 AM HEARING CARE PROFESSIONAL Sexual Orientation Straight 04/14/2022 11 :33 AM CDT Occupation Industry Job Start Date Job End Date Not on file Not on file Not on file Not on file documented as of this encounter Plan of Treatment Upcoming Encounters Date Type Department Care Team (Late st Contact Info) Description 01/22/2025 9:40 AM CDT Office Visit [facility] Medical Group Multispecialty Care - [place] [address] [place] [address] Mariah White, INTERNAL MEDICINE DOCTOR [address] [place] [address] 02/14/2025 8:30 AM CDT Office Visit [facility] [address] [facility], [address] [place], [place] [id number] Angelo Patterson MD [facility]. [address] [place], [place] [address] documented as of this encounter Visit Diagnoses Not on filedocumented in this encounter Care Teams Microbiology Quality Control Technician Relationship Specialty Start Date End Date Nieves Helton MD PCP - General 07/28/14 12/09/24 Mariah White, INTERNAL MEDICINE DOCTOR [address] [place] [address] PCP - General 12/10/24 Angelo Patterson MD [facility]. [address] [place], [place] [address] [place] Hand Trucker CARDIOVASCULAR DISEASE 12/01/17 documented as of this encounter
--- OUTSIDE RECORDS SUMMARY | 2024-12-24 18:40 | XMS_ITS | Encounter Summary ---
Author Organization [facility] Address [address] [place] [address] Care Team Providers Care Shower Maid Name Role Phone Nieves Helton MD Primary Care Provider [phone] Angelo Patterson MD Unavailable [phone] Mariah White NP Primary Care Provider [phone] Encounter Details Date Type Department Care Team (Late st Contact Info) Description 10/06/2022 [employer] Mobile Message Enc [facility] [address] [facility], [address] [place] [address] Natacha Gilmore PA-C [address] [facility], [address] [place] [address] medicine Social History Tobacco Use [...] Sex Assigned at Male 12/11/2024 10:38 AM TUTOR COORDINATOR Legal Sex Male 6:21 PM CDT Gender Identity Male 12/11/2024 10:38 AM TUTOR COORDINATOR Sexual Orientation Straight 04/14/2022 11 :33 AM CDT Occupation Industry Job Start Date Job End Date Not on file Not on file Not on file Not on file documented as of this encounter Plan of Treatment Upcoming Encounters Date Type Department Care Team (Late st Contact Info) Description 01/22/2025 9:40 AM CDT Office Visit [facility] Medical Group Multispecialty Care - [place] [address] [place] [address] Mariah White, CIGAR MAKER [address] [place] [address] 02/14/2025 8:30 AM CDT Office [facility], [address] [place], [place] [address] Angelo Patterson MD [facility]. [address] [place] [address] documented as of this encounter Visit Diagnoses Not on filedocumented in this encounter Care Teams Shower Maid Relationship Specialty Start Date End Date Nieves Helton MD PCP - General 07/28/14 12/09/24 Mariah White CIGAR MAKER [address] [place] [address] PCP - General 12/10/24 Angelo Patterson MD [facility]. [address] [place], [place] [address] [place] Private Branch Exchange Installer CARDIOVASCULAR DISEASE 12/01/17 documented as of this encounter
--- OUTSIDE RECORDS SUMMARY | 2024-12-24 18:40 | XMS_ITS | Encounter Summary ---
Author Organization [facility] Address [address] [place] [address] Care Team Providers Care Lead Systems Engineer Name Role Phone Angelo Patterson MD Unavailable Mariah White NP Primary Care Provider [phone] Reason for Visit * Reason Onset Date Comments Prior Authorization 12/16/2024 Encounter Details Date Type Department Care Team (Late st Contact Info) Description 12/16/2024 Telephone [facility] Medical Group Multispecialty Care - [place] [address] [place] [address] Mariah White NP [address] [place] [address] Prior Authorization Social History Tobacco [...] Sex Assigned at Male 12/11/2024 10:38 AM PRIMARY THERAPIST Legal Sex Male 6:21 PM CDT Gender Identity Male 12/11/2024 10:38 AM PRIMARY THERAPIST Sexual Orientation Straight 04/14/2022 11 :33 AM CDT Occupation Industry Job Start Date Job End Date Not on file Not on file Not on file Not on file documented as of this encounter Progress Notes * Bijal Mcneil MA - 12/23/2024 10:34 AM CST This has been sent for appeal waiting on decision. ARY THERAPIST * Bhargavi Patton - 12/23/2024 10:14 AM CST [facility] is calling with phone # for prior Auth, phone # [phone], this is for the wegovy. ARY THERAPIST * Demetra Benites MA - 12/16/2024 4:23 PM CST PA for wegovy Denied. ARY THERAPIST documented in this encounter Plan of Treatment Upcoming Encounters Date Type Department Care Team (Late st Contact Info) Description 01/22/2025 9:40 AM CDT Office Visit [facility] Medical Group Multispecialty Care - [place] [address] [place] [address] Mariah White NP [address] [place] [address] 02/14/2025 8:30 AM CDT Office Visit [facility] [address] [facility], [address] [place], [place] [id number] Angelo Patterson MD [facility]. [address] [place], [place] [id number] documented as of this encounter Visit Diagnoses Not on filedocumented in this encounter Additional Health Concerns Assessment Noted Time PHQ-9 Depression Total Score: 14 025 1:17 PM PRIMARY THERAPIST documented as of this encounter Care Teams Lead Systems Engineer Relationship Specialty Start Date End Date Mariah White, EXPORT CLERK [address] [place] [address] PCP - General 12/10/24 Angelo Patterson MD [facility]. [facility] [address] [place] [address] [place] Stock Clipper CARDIOVASCULAR DISEASE 12/01/17 documented as of this encounter
--- OUTSIDE RECORDS SUMMARY | 2024-12-24 18:40 | XMS_ITS | Encounter Summary ---
Author Organization [facility] Address [address] [place] [address] Care Team Providers Care Grocery Associate Name Role Phone Nieves Helton MD Primary Care Provider [phone] Angelo Patterson MD Unavailable [phone] Mariah White NP Primary Care Provider [phone] Encounter Details Date Type Department Care Team (Late st Contact Info) Description 10/05/2022 MyChart Message Enc [facility] Medical Group Family Medicine - [place] [address] [place] [address] [place] [address] [place] [address] Yannickgovrandy Social History Tobacco Use Types Packs/Day [...] Sex Assigned at Male 12/11/2024 10:38 AM ACTIVITIES COORDINATOR Legal Sex Male 6:21 PM CDT Gender Identity Male 12/11/2024 10:38 AM ACTIVITIES COORDINATOR Sexual Orientation Straight 04/14/2022 11 :33 [...] MEDICAL CENTER Medical Group Multispecialty Care - [place] [address] [place] [address] Mariah White, COAL MINE INSPECTOR [address] [place] [address] 02/14/2025 8:30 AM CDT [facility] [address] [place], [place] [address] Angelo Patterson MD [facility]. [address] [place] [address] documented as of this encounter Visit Diagnoses Not on filedocumented in this encounter Care Teams Grocery Associate Relationship Specialty Start Date End Date Nieves Helton MD PCP - General 07/28/14 12/09/24 Mariah White COAL MINE INSPECTOR [address] [place] [address] PCP - General 12/10/24 Angelo Patterson MD [facility]. [address] [place], [place] [address] [place] Direct Care Specialist CARDIOVASCULAR DISEASE 12/01/17 documented as of this encounter
--- NOTE | 2024-12-24 19:36 | ADMGEN ---
This patient, Jagdish Gomez, was admitted to Medical Room 249-01. Patient/family oriented to hospital policies and general routines including ID bracelet, bed and alarms, visiting hours, pain management, procedures, bathroom and other care routines, personal items, smoking policy, room service/diet, and visiting hours. Information on how to activate the Rapid Response Team has been discussed. Patient/Family are encouraged to report perceived risks to care and to ask questions if they do not understand what they are told or what they should do.
[2024-12-24] MEDS: LACTATED RINGERS 1,000 ML 150 ML IV CONT (19:41)
[2024-12-24] MEDS: HYDROmorphone HCL INJ (*CRX) 2 MG/ML VIAL 0.5 MG IV PUSH (19:46)
[2024-12-25] VITALS (12 sets, daily range): BP systolic 108–144; BP diastolic 64–89; PULSE 61–88; RESP 12–20; TEMP 36.2–37; O2SAT 91–99
[2024-12-25] MEDS: HYDROmorphone HCL INJ (*CRX) 2 MG/ML VIAL 0.5 MG IV PUSH ×3 (00:02→08:53)
[2024-12-25] MEDS: LACTATED RINGERS 1,000 ML 150 ML IV CONT ×2 (02:22→09:48)
[2024-12-25] MEDS: PIPERACILLN/TAZ 3.375GM/NS50ML 3.375 GM/50 ML BAG IVPB ×3 (05:10→17:35)
--- NOTE | 2024-12-25 11:41 | ECG_ITS ---
Test Date: 2024-12-25 12:03:27 Measurements Intervals [place] Rate: 66 P: 22 CA: 164 QRS: 74 QRSD: 97 T: 45 QT: 370 QTc: 389 Interpretive Statements SINUS RHYTHM LOW QRS VOLTAGE IN PRECORDIAL LEADS CANNOT R/O SEPTAL INFARCT, AGE INDETERMINATE ABNORMAL ECG No previous ECG available for comparison Electronically Signed On 12-25-2024 12:51:46 ENFORCEMENT OFFICER by Toni North D.O.
--- NOTE | 2024-12-25 12:16 | WPDHPUPDATE1 ---
History and Physical Update Update Date/Time: 12/25/24 12:16 History and Physical has been reviewed, including an updated exam of the patient. There are NO changes in the patient's condition. Risks, benefits, and alternatives have been discussed and questions answered. Patient agrees to proceed with procedure.
--- NOTE | 2024-12-25 12:16 | PM.IMHP ---
H&P: HPI History of Present Illness Date/Time: 12/25/24 12:16 Chief Complaint: Right lower quadrant pain Narrative: This is a 54-year-old man who presented to the emergency department yesterday evening with right lower quadrant pain that started about 4 days prior. He states that the pain was very vague and mild 1st but gradually worsened time. Yesterday he also began experiencing some nausea and chills. He denies any change in bowel habits fevers. He has never had any symptoms like this before. He does have a history of acute DC in 2018. He also has a history of umbilical hernia repair with mesh. In the emergency department he was noted to have an elevated white blood count and CT showed evidence of acute appendicitis. He was admitted to my service for further treatment and placed on Zosyn. His pain has been controlled since being admitted and he and was remaining afebrile. Review of Systems Review of Systems: All systems reviewed & are unremarkable except as noted in HPI and below Constitutional: Constitutional: Reports chills Eyes: Eyes: Denies change in vision ENT: Denies hearing loss, Denies neck pain and Denies sore throat Cardiovascular: Cardiovascular: Denies chest pain and Denies dyspnea Respiratory: Respiratory: Denies cough, Denies dyspnea and Denies wheezing Gastrointestinal: Gastrointestinal: Reports as per HPI Genitourinary: Genitourinary: Denies hematuria and Denies dysuria Musculoskeletal: Musculoskeletal: Denies arthralgias, Denies joint swelling and Denies neck pain Allergic/Immunologic: Allergic/Immunologic: Denies wheezing PMFSH Past Medical History Medical History (Updated 12/25/24 @ 12:21 by El Camacho DO) Hyperlipidemia Hypertension, essential Coronary artery disease Surgical History Surgical History (Updated 12/25/24 @ 12:19 by El Camacho DO) Hx of umbilical hernia repair Open repair with mesh Family History Family History (Updated 12/24/24 @ 19:46 by Starr Patiño RN) Father Afib Hypertension Mother Hypertension Social History Social History Smoking status: Never smoker Alcohol intake: current Substance use: never Substance use type: does not use Do You Feel Safe in your Home?: Yes Lack of Transportation: No Lack of Food: Never True Current Housing: I Have Housing Concerned About Future Housing: No Difficulty Paying Gas/Electric Bills: No Difficulty Paying for Meds: No Currently Unemployed: No Education: Bachelor's Degree Difficulty w/ Childcare or Family Care: No Spiritual care concerns: No Meds Home Medications and Allergies Home Medications ?Medication ?Instructions ?Recorded ?Confirmed ?Type aspirin 81 mg chewable tablet 81 mg PO DAILY 09/27/22 12/24/24 History atorvastatin 80 mg tablet 80 mg PO DAILY 09/27/22 12/24/24 History losartan 50 mg tablet 50 mg PO BID 09/27/22 12/24/24 History pantoprazole 40 mg tablet,delayed 40 mg PO DAILY 09/27/22 12/24/24 History release multivitamin (Daily Multi-Vitamin 1 tablet PO DAILY 12/24/24 12/24/24 History tablet) tadalafil 5 mg tablet (Cialis) 5 mg PO DAILY 12/24/24 12/24/24 History Allergies Allergy/AdvReac Type Severity Reaction Status Date / Time No Known Allergies Allergy Verified 12/24/24 16:21 Vital Signs Vital Signs - 24 hr 12/24/24 12:34 12/24/24 15:58 12/24/24 16:02 Temperature 98.1 F Pulse Rate 88 74 71 Respiratory Rate 18 19 19 Blood Pressure 160/84 H 132/83 125/85 Pulse Oximetry 98 95 95 Oxygen Delivery 12/24/24 16:16 12/24/24 16:22 12/24/24 16:32 Temperature Pulse Rate 74 77 74 Respiratory Rate 20 20 20 Blood Pressure 133/92 H 133/92 H 131/76 Pulse Oximetry 92 98 93 Oxygen Delivery 12/24/24 17:01 12/24/24 18:28 12/24/24 19:45 Temperature 97.9 F Pulse Rate 78 78 74 Respiratory Rate 18 14 20 Blood Pressure 132/80 142/86 H 162/91 H Pulse Oximetry 95 99 100 Oxygen Delivery 12/24/24 20:00 12/25/24 05:19 12/25/24 08:39 Temperature 98.2 F Pulse Rate 76 Respiratory Rate 20 Blood Pressure 119/64 Pulse Oximetry 94 Oxygen Delivery Room Air Room Air Exam Const: General: alert; No acute distress Orientation/consciousness: patient oriented x3 Limitations: no limitations HENMT: Head: normocephalic and atraumatic Ears: hearing grossly normal bilaterally Face/Nose/Sinus: Normal external nose present and Normal nares present Mouth: Yes Normal oral and palatal mucosa present and Yes moist mucous membranes Eyes: General: appearance normal, both eyes and all related structures Conjunctivae: conjunctivae normal Sclera: sclerae normal Pupils: Equal, round and reactive pupils present EOM: EOMs intact bilaterally Neck: Neck: normal visual inspection, full ROM, no lymphadenopathy, supple and no JVD Lymphatic: no lymphadenopathy noted Chest: Chest palpation & inspection: normal inspection of the chest Resp: Effort & Inspection: normal respiratory effort and able to speak in complete sentences Auscultation: clear to auscultation bilaterally Percussion: percussion normal Cardio: Jugular venous distension: no JVD Rate: regular rate Rhythm: regular rhythm Heart sounds: S1 normal heart sound present and S2 normal heart sound present Peripheral pulses: Peripheral pulses 2+ throughout GI: Inspection: normal to inspection, non-distended and scar (Infraumbilical) GI Palp: Yes Soft to palpation, Yes Tenderness to palpation present (GI) (Right lower quadrant), No Guarding due to palpation present (GI), No Hernia present and No Rebound tenderness present Percussion: Yes normal to percussion Auscultation: normal bowel sounds : General: Yes no CVA tenderness Back/Spine/Pelvis: Back: no CVA tenderness Skin: General skin exam: normal color and dry skin Neuro: General: patient oriented x3, gait normal, moves all extremities, no focal motor deficits and CN's II-XI intact bilaterally Cranial nerves: Yes Equal, round and reactive pupils present Speech: normal speech Extrem: General: normal to inspection and capillary refill normal H&P: Results Labs Labs: Short CBC 12/24/24 Range/Units 16:25 WBC 12.1 H (4.5-10.0) K/mm3 Hgb 17.5 (14.0-18.0) g/dL Hct 51.2 (42.0-52.0) % Plt Count 201 (150-375) k/mm3 BMP 12/24/24 16:25 Sodium 135 L Potassium 4.4 Chloride 100 Carbon Dioxide 26 BUN 14 Creatinine 0.82 Glucose 91 Calcium 9.3 Liver Function 12/24/24 Range/Units 16:25 Total Bilirubin 1.2 (0.2-1.3) mg/dL AST 46 (17-59) U/L ALT 60 H (6-50) U/L Alkaline Phosphatase 55 (38-126) U/L Albumin 4.7 (3.5-5.1) g/dL Urine 12/24/24 Range/Units 16:25 Urine Color Yellow (Yellow) Urine Appearance Clear (Clear) Urine pH 7.5 (5.0-9.0) Ur Specific [place] 1.021 (1.001-1.035) Urine Protein Negative (Negative) mg/dL Urine Glucose (UA) Negative (Negative) mg/dL Imaging CT scan - abdomen: Radiologist's impression: ITS Impressions Abdomen/Pelvis CT 12/24/24 17:22 IMPRESSION: Acute appendicitis, as detailed above. No drainable fluid collection. No gross perforation. Assessment and Plan Assessment and plan (1) Acute appendicitis: Qualifiers: Acute appendicitis type: with localized peritonitis Appendicitis gangrene presence: unspecified whether gangrene present Appendicitis perforation presence: unspecified whether perforation present Appendicitis abscess presence: unspecified whether abscess present Qualified Code(s): K35.30 - Acute appendicitis with localized peritonitis, without perforation or gangrene Code(s): K35.80 - Unspecified acute appendicitis Status: Acute Assessment and Plan: I have reviewed the CT and discussed the findings with the patient. He has evidence of acute appendicitis. He has been having symptoms for about 4 days which I discussed there is a chance of perforation already. I discussed both medical and surgical treatment options and patient feels comfortable proceeding with surgery. He has been started on Zosyn in the emergency department. Will continue this perioperatively. I have recommended proceeding with laparoscopic appendectomy, possible open. I discussed the procedure, risks, benefits, alternatives. Questions were answered. (2) Coronary artery disease: Qualifiers: Coronary Disease-Associated Artery/Lesion type: [place] artery [place] vs. transplanted heart: [place] heart Associated angina: without angina Qualified Code(s): I25.10 - Atherosclerotic heart disease of [place] coronary artery without angina pectoris Code(s): I25.10 - Atherosclerotic heart disease of [place] coronary artery without angina pectoris Status: Acute (3) Hypertension, essential: Code(s): I10 - Essential (primary) hypertension Status: Acute (4) Hyperlipidemia: Qualifiers: Hyperlipidemia type: unspecified Qualified Code(s): E78.5 - Hyperlipidemia, unspecified Code(s): E78.5 - Hyperlipidemia, unspecified Status: Acute
--- NOTE | 2024-12-25 14:02 | WPDANESEPPF ---
Anes - Initial Pre Proc Eval Procedure: Operation Date: 12/25/24 14:00 Proposed Procedures p Laparoscopic Appendectomy - El Camacho DO Date/Time: 12/25/24 14:02 Surgeon: El Camacho DO Pre Op Diagnosis: Acute Appendicitis Patient Data Age: 54 Gender: M Height: 1.8 m Weight: 113.8 kg Last Vital Signs Temp 98.2 F 12/25/24 05:19 Pulse 76 12/25/24 05:19 Resp 20 12/25/24 05:19 BP 119/64 12/25/24 05:19 Pulse Ox 94 12/25/24 05:19 O2 Del Method Room Air 12/25/24 08:39 Allergies Allergy/AdvReac Type Severity Reaction Status Date / Time No Known Allergies Allergy Verified 12/24/24 16:21 Home Medications ?Medication ?Instructions ?Recorded ?Confirmed ?Type aspirin 81 mg chewable tablet 81 mg PO DAILY 09/27/22 12/24/24 History atorvastatin 80 mg tablet 80 mg PO DAILY 09/27/22 12/24/24 History losartan 50 mg tablet 50 mg PO BID 09/27/22 12/24/24 History pantoprazole 40 mg tablet,delayed 40 mg PO DAILY 09/27/22 12/24/24 History release multivitamin (Daily Multi-Vitamin 1 tablet PO DAILY 12/24/24 12/24/24 History tablet) tadalafil 5 mg tablet (Cialis) 5 mg PO DAILY 12/24/24 12/24/24 History Laboratory Tests 12/24/24 16:25 WBC 12.1 H K/mm3 (4.5-10.0) RBC 5.49 M/mm3 (4.6-6.20) Hgb 17.5 g/dL (14.0-18.0) Hct 51.2 % (42.0-52.0) MCV 93.3 fl (80-100) MCH 31.9 pg (26-34) MCHC 34.2 g/dl (32-36) RDW 12.8 % (11.5-14.5) Plt Count 201 k/mm3 (150-375) MPV 11.1 H fl (7.4-10.4) Immature Gran % (Auto) 1.0 H % (0-0.5) Neut % (Auto) 79.6 H % (45.5-73.1) Lymph % (Auto) 12.1 L % (18.3-44.2) [place] % (Auto) 6.6 % (2.6-8.5) Eos % (Auto) 0.4 % (0-4.4) Baso % (Auto) 0.3 % (0.2-1.2) Lymph # (Auto) 1.47 K/mm3 (0.9-3.2) [place] # (Auto) 0.8 H K/mm3 (0.1-0.6) Eos # (Auto) 0.1 K/mm3 (0-0.3) Baso # (Auto) 0.0 K/mm3 (0.0-0.1) Abs Immat Gran (auto) 0.12 H K/mm3 (0.00-0.031) Absolute Neuts (auto) 9.6 H K/mm3 (1.3-6.7) Absolute Nucleated RBC 0.000 K/mm3 (0.0-0.012) Nucleated RBC % 0.0 % (0.0-0.2) Sodium 135 L mmol/L (137-145) Potassium 4.4 mmol/L (3.4-5.0) Chloride 100 mmol/L (98-107) Carbon Dioxide 26 mmol/L (22-30) Anion Gap 9 mmol/L (4-12) BUN 14 mg/dL (9-20) Creatinine 0.82 mg/dL (0.7-1.3) Estim Creat Clear Calc 118 ml/min Estimated GFR > 60 (59 - ) Glucose 91 mg/dL (65-110) Calcium 9.3 mg/dL (8.4-10.2) Total Bilirubin 1.2 mg/dL (0.2-1.3) AST 46 U/L (17-59) ALT 60 H U/L (6-50) Alkaline Phosphatase 55 U/L (38-126) Total Protein 8.0 g/dL (6.3-8.2) Albumin 4.7 g/dL (3.5-5.1) Lipase 91 U/L (23-300) Urine Color Yellow (Yellow) Urine Appearance Clear (Clear) Urine pH 7.5 (5.0-9.0) Ur Specific [place] 1.021 (1.001-1.035) Urine Protein Negative mg/dL (Negative) Urine Glucose (UA) Negative mg/dL (Negative) Urine Ketones Negative mg/dL (Negative) Ur Blood (Man) Negative (Negative) Urine Nitrate Negative (Negative) Urine Bilirubin Negative (Negative) Urine Urobilinogen 0.2 mg/dL (<2.0) Leukocyte Esterase Rfl Negative JOHN/UL (Negative) Patient hx anesthesia problems: none Family hx anesthesia problems: none Results Review: All pre-operative results and documents have been reviewed as part of the pre-operative evaluation. COUNTS INCLUDE 234 BEDS AT THE [facility] Past Medical History Medical History Hyperlipidemia Hypertension, essential Coronary artery disease Surgical History Surgical History Hx of umbilical hernia repair Open repair with mesh Family History Family History Father Afib Hypertension Mother Hypertension Social History Social History Smoking status: Never smoker Alcohol intake: current Substance use: never Substance use type: does not use Do You Feel Safe in your Home?: Yes Lack of Transportation: No Lack of Food: Never True Current Housing: I Have Housing Concerned About Future Housing: No Difficulty Paying Gas/Electric Bills: No Difficulty Paying for Meds: No Currently Unemployed: No Education: Bachelor's Degree Difficulty w/ Childcare or Family Care: No Spiritual care concerns: No Anes - Eval Final PreProcedure Day of Procedure 12/25/24 14:02 Patient weight: obese Lungs: normal air movement Airway: Mallampati scale class II Neurological: alert and oriented Last oral intake: >/= 8 hours ASA classification: III Emergent: no Anesthetic plan: proceed Anesthesia type and monitoring: general ETT and standard monitoring Results Review: All pre-operative results and documents have been reviewed as part of the pre-operative evaluation. HTN, hyperlipidemia, s/p PTCA 2018, pt had stress test 2019 he reports as nml. Informed Consent: The patient's anesthetic plan and its attendant risks and benefits were discussed with the patient/family/POA. Questions were solicited and answers provided to the satisfaction of the patient/family/POA.
[2024-12-25] MEDS: BUPIVACAINE/EPINEPHRINE 0.5% 30 ML VIAL INFILTRATE (14:37)
--- NOTE | 2024-12-25 14:52 | W.PM.PROC2 ---
Procedure Note - Detailed Date of Procedure 12/25/24 Pre-op Diagnosis Acute Appendicitis Post-op Diagnosis Same Procedure Performed Laparoscopic appendectomy Surgeon El Camacho, DO Anesthesia General and Local (0.5% bupivicaine with epinephrine) Indications This is a 54-year-old man who presented to the emergency department last night with right lower quadrant abdominal pain for the past 4 days. He was found to have an elevated white blood count and CT showed evidence of acute appendicitis. He was started on Zosyn and admitted for further treatment. Discussions were made with the patient about treatment options and decision was made to proceed with laparoscopic appendectomy, possible open. Findings Laparoscopic appendectomy was performed. The appendix was very indurated and dilated, but there was no clear evidence of perforation or abscess. There was a small amount of reactive exudate on the surface of the appendix. The base of the appendix appeared healthy and viable. The appendix was removed and sent to the lab for pathology. I then irrigated the right lower quadrant and pelvis with about 1 L of sterile saline. Description of Procedure Procedure as well as risks, benefits, and alternatives were explained to the patient. The patient agreed to proceed. Written consent was obtained and placed in chart prior to procedure. The patient was brought back to surgical suite. He was placed supine on operating table. Time-out was done to confirm the patient and procedure. The patient was then intubated by the Anesthesia Department. His abdomen was prepped and draped in sterile fashion using chlorhexidine prep. A 5 mm incision was made in the right subcostal region and a 5 mm Optiview trocar was advanced through the abdominal layers under direct visualization. Once inside the peritoneal cavity, carbon dioxide insufflation was used to create a pneumoperitoneum. The camera was inserted and the abdomen was inspected. No immediate abnormalities were identified. The patient was then placed in slight Trendelenburg position and rotated to the left. A 5 mm incision was made in left lower quadrant and a 5 mm trocar was inserted under direct visualization. A 12 mm incision was made in the left mid abdomen and a 12 mm trocar was inserted under direct visualization. The right lower quadrant was carefully inspected. The cecum was identified and then this was traced back to the appendix. The appendix was identified and grasped at the mesoappendix and lifted anteriorly. Careful blunt dissection was carried out at the base of the appendix through the mesoappendix using a [place] grasper. An Endo-CHELSY 45 mm blue load stapler was then advanced across the base of the appendix and clamped and fired. A white reload was then clamped across the mesoappendix and fired. This freed up our appendix completely. It was then placed in an EndoCatch bag and removed through the left lower quadrant port. The staple lines were then inspected. Hemostasis appeared adequate and the staple lines appeared secure. The area was then irrigated with sterile saline. The pelvis was then carefully inspected and irrigated with sterile saline as well and the remainder of the abdomen was carefully inspected. The patient was then flattened out in bed. One final inspection was made around the abdominal cavity and no other abnormalities were seen. The left mid abdominal port was removed and a Juan-Hermelinda cone was used to approximate the fascia with an 0 Vicryl simple interrupted suture. The remaining ports were then removed under direct visualization. The camera was removed and the pneumoperitoneum was released. 0.5% bupivacaine with epinephrine was infiltrated locally around each of the incisions. The skin of the incisions was then approximated using 4-0 Monocryl subcuticular suture and Exofin glue was applied on top. The patient was then awakened from anesthesia, extubated, and transferred to Recovery. Estimated Blood Loss 10 Urine Output 550 Pathology Yes (Appendix) Complications No immediate complications Condition Stable Disposition Floor [facility] Billing Surgery - Charge Forward: Surgery Billing
[2024-12-25] MEDS: LACTATED RINGERS 1,000 ML 30 ML IV CONT ×2 (14:56)
--- NOTE | 2024-12-25 14:59 | P.DS_ITS ---
DS: Admitting Diagnosis Discharge Date 12/25/2024 Admitting Diagnosis Acute appendicitis, coronary artery disease, hypertension, hyperlipidemia DS: Discharge Diagnosis Discharge Diagnosis (1) Acute appendicitis: Qualifiers: Acute appendicitis type: with localized peritonitis Appendicitis abscess presence: unspecified whether abscess present Appendicitis gangrene presence: unspecified whether gangrene present Appendicitis perforation presence: unspecified whether perforation present Qualified Code(s): K35.30 - Acute appendicitis with localized peritonitis, without perforation or gangrene Code(s): K35.80 - Unspecified acute appendicitis Status: Acute (2) Coronary artery disease: Qualifiers: Coronary Disease-Associated Artery/Lesion type: [place] artery [place] vs. transplanted heart: [place] heart Associated angina: without angina Qualified Code(s): I25.10 - Atherosclerotic heart disease of [place] coronary artery without angina pectoris Code(s): I25.10 - Atherosclerotic heart disease of [place] coronary artery without angina pectoris Status: Acute (3) Hypertension, essential: Code(s): I10 - Essential (primary) hypertension Status: Acute (4) Hyperlipidemia: Qualifiers: Hyperlipidemia type: unspecified Qualified Code(s): E78.5 - Hyperlipidemia, unspecified Code(s): E78.5 - Hyperlipidemia, unspecified Status: Acute DS: Summary Hospital Course Reason for hospitalization: Acute appendicitis Hospital Course: This is a 54-year-old man who presented to the emergency department on 12/24/2024 with right lower quadrant abdominal pain for the past 4 days. He was found have evidence of acute appendicitis and had an elevated white blood count. He was hemodynamically stable and not showing any signs of peritonitis. He was started on IV Zosyn and placed in observation for further treatment. On 12/25 he underwent laparoscopic appendectomy. He was then returned to the surgical floor postoperatively. His diet and activity were gradually advanced as tolerated. He was discharged home once pain was controlled, vitals remained stable, he was tolerating a regular diet, and ambulating in the halls. Status at Discharge Functional status at discharge: independent ambulation Overall status at discharge: patient is progressing back to baseline Time Spent with Patient Time attestation: Total time spent providing and/or coordinating discharge services: Time spent: Less than 30 minutes Exam Const: General: comfortable and no acute distress Resp: Effort & Inspection: normal respiratory effort GI: Inspection: non-distended and incision (Intact with glue) DS: Data Data Completed and Pending Pending studies at discharge: Pending at discharge 12/25/24 14:33 Surgical [PTH] Routine Labs on day of discharge: Labs from last 24 hours 12/24/24 16:25 WBC 12.1 H RBC 5.49 Hgb 17.5 Hct 51.2 MCV 93.3 MCH 31.9 MCHC 34.2 RDW 12.8 Plt Count 201 MPV 11.1 H Immature Gran % (Auto) 1.0 H Neut % (Auto) 79.6 H Lymph % (Auto) 12.1 L [place] % (Auto) 6.6 Eos % (Auto) 0.4 Baso % (Auto) 0.3 Lymph # (Auto) 1.47 [place] # (Auto) 0.8 H Eos # (Auto) 0.1 Baso # (Auto) 0.0 Abs Immat Gran (auto) 0.12 H Absolute Neuts (auto) 9.6 H Absolute Nucleated RBC 0.000 Nucleated RBC % 0.0 Sodium 135 L Potassium 4.4 Chloride 100 Carbon Dioxide 26 Anion Gap 9 BUN 14 Creatinine 0.82 Estim Creat Clear Calc 118 Estimated GFR > 60 Glucose 91 Calcium 9.3 Total Bilirubin 1.2 AST 46 ALT 60 H Alkaline Phosphatase 55 Total Protein 8.0 Albumin 4.7 Lipase 91 Urine Color Yellow Urine Appearance Clear Urine pH 7.5 Ur Specific [place] 1.021 Urine Protein Negative Urine Glucose (UA) Negative Urine Ketones Negative Ur Blood (Man) Negative Urine Nitrate Negative Urine Bilirubin Negative Urine Urobilinogen 0.2 Leukocyte Esterase Rfl Negative Imaging Radiologist's impression: ITS Impressions Abdomen/Pelvis CT 12/24/24 17:22 IMPRESSION: Acute appendicitis, as detailed above. No drainable fluid collection. No gross perforation. Discharge Plan Discharge Attending physician on discharge: El Manriquez Discharging Clinician: El Manriquez Patient Disposition: Home, Self-Care Activity: other - see discharge instructions Diet: regular Wound Care Instructions: other - see discharge instructions Discharge Instructions: DISCHARGE INSTRUCTION SHEET FOR HERNIA, GALLBLADDER AND APPENDIX SURGERIES DR. MANRIQUEZ PATIENT TO TAKE HOME 1. May shower in 24 hours, no soaking in bath x 2weeks. 2. Call office for: * Wound increasingly painful or bleeding * Vomiting * Fever of greater than 101 degrees 3. If no bowel movement for three days, take 1 oz. (30 ml) Milk of Magnesia or MiraLax 17g 1 to 2 times daily. 4. No heavy lifting > 10-15 pounds x weeks for hernia repairs and 2 weeks for laparoscopic cholecystectomy or appendectomy. 5. No driving for 3 days or while taking narcotic pain medications. 6. Ice to surgical site for 48 hours (30 min on, then 30 min off). 7. Up walking 10-30 minutes three times per day. 8. Resume previous home medications. 9. Follow-up 10-14 days in office for wound check or as previously scheduled. ([phone]) 10. Oral pain medications prescription to be sent to pharmacy. Take Tylenol 500mg every 6 hours and Ibuprofen 600mg every 6 hours for the first 2 days, then as needed. 11. NUTRITION: Start out by drinking fluids and increase your diet as tolerated. If you experience nausea, try dry toast, crackers, and 7-UP. If nausea or vomiting persists, contact your surgeon?s office. 12. Gallbladders-Low Fat Diet for 2 weeks (send care note of low fat diet) 13. Inguinal Hernias-wear scrotal support for 48 hours 14. Abdominal Hernias-if sent home with abdominal binder, wear for the first 2 weeks (may remove to shower or at night to sleep). Revised February 2019 Patient Language: Estonian Stand Alone Forms: Work/School Release IP Follow-up/Referrals: El Manriquez, [Physician] - 2 Weeks Discharge Medications: New hydrocodone-acetaminophen 5-325 mg tablet 1 tablet PO Q4H PRN (Reason: pain) Qty: 10 0RF Continued losartan 50 mg tablet 50 mg PO BID atorvastatin 80 mg tablet 80 mg PO DAILY pantoprazole 40 mg tablet,delayed release (DR/EC) 40 mg PO DAILY aspirin [Adult Aspirin] 81 mg Tablet,Chewable 81 mg PO DAILY tadalafil [Cialis] 5 mg tablet 5 mg PO DAILY multivitamin [Daily Multi-Vitamin] Tablet 1 tablet PO DAILY Date of admission: 12/24/24 18:00 Primary Care Provider: Cindy,Mariah Cowan Admitting Provider: El Manriquez Attending physician on admission: El Manriquez Condition: Improved
[2024-12-25] MEDS: LOSARTAN POTASSIUM 50 MG TABLET PO (17:35)
== END 2024-12-25 19:13 | disposition home or self-care (01) ==
LOC: ANHED 16:26 → ANH2MED 18:16
PROVIDERS: Physician Assistant; Admitting Provider Surgery; Emergency Provider Emergency Medicine; PCP Nurse Practitioner; Visit Provider Surgery
PROC: 0DTJ4ZZ Resection of Appendix, Percutaneous Endoscopic Approach (ICD-10-PCS; CPT 44970; principal; 2024-12-25 14:00)
DX: K35.80 Unspecified acute appendicitis (principal); I25.10 Atherosclerotic heart disease of native coronary artery without angina pectoris; I25.2 Old myocardial infarction; I10 Essential (primary) hypertension; E78.5 Hyperlipidemia, unspecified; E66.9 Obesity, unspecified; Z68.35 Body mass index [BMI] 35.0-35.9, adult; Z79.82 Long term (current) use of aspirin; Z79.899 Other long term (current) drug therapy; Z98.890 Other specified postprocedural states
CPT/HCPCS: 44970; 36415; 74177; 80053; 81003; 83690; 85025; 88304; 93005; 96361; 96365; 96366; 96374; 96375; 96376; 99285; A9270; G0378; J1100; J1171; J2405; J2543; J2704; J3010; J7030; J7120; Q9967